=== PATIENT | female | born 1995 | race Caucasian/White ===

== ENCOUNTER → 2018-03-08 10:01 | Outpatient (CLI) | payer OTHER, MEDICAID, SELFPAY ==
[2018-03-08 11:00] LABS: Appearance Urine UA SL CLOUDY; Bilirubin Urine UA NEGATIVE (NEGATIVE); Color Urine UA YELLOW; Glucose Urine UA NEGATIVE (Normal); Ketones Urine UA NEGATIVE (NEGATIVE); Leukocyte Esterase Urine UA 1+ (NEGATIVE); Nitrite Urine UA Negative (Negative); Occult Blood Urine UA 1+ (Negative); Protein Urine UA NEGATIVE (Negative); Specific Gravity Urine UA 1.015 (1.000-1.035); Urobilinogen Urine UA 0.2 E.U./dL (0.2); pH Urine UA 6.5 (4.5-8.0)
[2018-03-08 11:15] LABS: Bacteria Urine Many (>30); Culture Indicated Urine Cult Not Indicated; RBC Urine 1-5/HPF (0-5/HPF); Squamous Epithelial Cell Urine 10-30 /HPF; WBC Urine 30-100/HPF (0-5/HPF)
[2018-03-08 12:28] LABS: Urine N gonorrhoeae NOT DETECTED
[2018-03-08 12:29] LABS: HCG Quantitative /Beta subunit < 2.39 mIU/mL
[2018-03-08 12:31] LABS: Urine Chlamydia NOT DETECTED
== END ==
PROVIDERS: PCP Internal Medicine; Visit Provider Internal Medicine
DX: N91.2 Amenorrhea, unspecified (principal); R30.0 Dysuria
CPT/HCPCS: 36415; 81003; 81015; 84702; 87077; 87086; 87491; 87591

== ENCOUNTER → 2018-07-27 14:55 | Outpatient (CLI) | payer OTHER, MEDICAID, SELFPAY ==
[2018-07-27 16:09] LABS: Add Manual Diff / Slide Review NO; Basophils Percent Auto 0.6 % (0-2); Hematocrit 36.9 % (36-46); Hemoglobin 12.6 g/dL (12.0-16.0); Lymphocytes Percent Auto 32.5 % (25-40); Mean Corpuscular HGB Conc 34.1 % (30-36); Mean Corpuscular Hemoglobin 29.2 PG (26-34); Mean Corpuscular Volume 85.7 fL (80-100); Monocytes Percent Auto 7.2 % (3-14); Neutrophils Absolute Auto 4800 /uL (3000-5900); Neutrophils Percent Auto 57.7 % (50-75); Platelet Count 233 X10^3/uL (150-400); Red Blood Cell Count 4.31 X10^6/uL (4.0-5.2); Red Cell Distribution Width 12.6 % (11.6-14.8); White Blood Cell Count 8.4 X10^3/uL (4.5-11.0)
[2018-07-27 16:11] LABS: Appearance Urine UA CLEAR; Bilirubin Urine UA NEGATIVE (NEGATIVE); Color Urine UA YELLOW; Glucose Urine UA NEGATIVE (Normal); Ketones Urine UA NEGATIVE (NEGATIVE); Leukocyte Esterase Urine UA NEGATIVE (NEGATIVE); Nitrite Urine UA NEGATIVE (Negative); Occult Blood Urine UA NEGATIVE (Negative); Protein Urine UA NEGATIVE (Negative); Specific Gravity Urine UA 1.025 (1.000-1.035); Urobilinogen Urine UA 0.2 E.U./dL (0.2)
[2018-07-27 18:37] LABS: HIV 1 and 2 Antibody NEGATIVE (NEGATIVE); Hep C Virus Ab w/Reflex Quant NEGATIVE s/c (NEGATIVE); Hepatitis B Surface Antigen NEGATIVE s/c (NEGATIVE); Rubella Antibody IgG 18.6 IU/mL (>15)
[2018-07-29 14:30] LABS: HSV 2 IGG AB < 0.90 index (< 0.90); HSV1IGG 9.03 index (< 0.90)
[2018-07-29 14:32] LABS: RPR Screen Nonreactive (Nonreactive)
== END ==
PROVIDERS: PCP Internal Medicine; Visit Provider Obstetrics & Gynecology
DX: Z34.91 Encounter for supervision of normal pregnancy, unspecified, first trimester (principal)
CPT/HCPCS: 36415; 80055; 81003; 86695; 86696; 86703; 86787; 86803; 86850; 86900; 86901; 87077; 87086

== ENCOUNTER → 2018-09-06 15:12 | Outpatient (CLI) | payer OTHER, MEDICAID, SELFPAY ==
[2018-09-06 15:28] LABS: RBC Urine None Seen (0-5/HPF)
[2018-09-06 15:46] LABS: Appearance Urine UA CLEAR; Bilirubin Urine UA NEGATIVE (NEGATIVE); Color Urine UA YELLOW; Glucose Urine UA NEGATIVE (Normal); Ketones Urine UA NEGATIVE (NEGATIVE); Leukocyte Esterase Urine UA NEGATIVE (NEGATIVE); Nitrite Urine UA NEGATIVE (Negative); Occult Blood Urine UA NEGATIVE (Negative); Protein Urine UA NEGATIVE (Negative)
[2018-09-06 16:32] LABS: Amorphous Sediment Urine 1+; Bacteria Urine Few (2-10); Culture Indicated Urine Cult Not Indicated; Mucus Urine 1+ (Negative); Renal Epithelial Cells Urine 0-1/HPF; Squamous Epithelial Cell Urine 5-10 /HPF; WBC Urine 1-5/HPF (0-5/HPF)
[2018-09-13 10:10] LABS: AFP, Serum 31.4 ng/mL; Calc Gestational Age 16.3; Cigarette Smoker NOT GIVEN; Donated Egg NOT GIVEN; Donor Egg Age NOT GIVEN; Inhibin A, Dimeric 262 pg/mL; Maternal Ethnicity CAUCASIAN; Maternal Weight 125 lbs; Number of Fetuses 1; Previous Pregnancy Down Syndro NOT GIVEN; hCG, MoM 1.57; hCG, Serum 57.2 IU/mL
== END ==
PROVIDERS: PCP Internal Medicine; Visit Provider Obstetrics & Gynecology
DX: Z34.82 Encounter for supervision of other normal pregnancy, second trimester (principal); Z3A.16 16 weeks gestation of pregnancy; Z87.440 Personal history of urinary (tract) infections
CPT/HCPCS: 36415; 81001; 82105; 82677; 84702; 86336

== ENCOUNTER → 2018-10-22 14:09 | Outpatient (CLI) | payer OTHER, MEDICAID, SELFPAY ==
--- NOTE | 2018-10-22 14:10 | DI.US.S_ITS ---
PROCEDURE: US OB >= 14 WEEKS FETUS INDICATIONS: anatomy survey OUTSIDE/PRIOR DATING DATA: Last menstrual period (LMP): 05/14/18. LMP-based estimated date of delivery (THALIA): 02/18/19. First dating scan (date and location): 07/27/18. Estimated date of delivery (THALIA) from first dating scan: 02/23/19. TECHNIQUE: Real-time scanning was performed of the fetus, with image documentation and biometric measurements. Endovaginal scanning: No COMPARISON: [facility], , OB >= 14 WEEKS FETUS, 09/06/2018, 15:08. FINDINGS: General: A single living intrauterine gestation is present. Presentation: Breech. Placenta: Placental position is posterior, without previa. Amniotic fluid index: 12.1 cm, normal range is 5-24 cm. heart rate: 153 beats per minute. Maternal cervical canal: 3.9 cm long. Normal lower limit is 2.5 cm. biometrics: Biparietal diameter: 22 weeks 1 day Head circumference: 22 weeks 0 days Abdominal circumference: 22 weeks 1 day Femur length: 21 weeks 4 days Estimated gestational age from initial scan: 22 weeks 2 days Composite gestational age from present scan: 22 weeks Estimated weight and percentile: 462 g; 27 percentile Measurement variability for biometric dating: +/- 7 days from 14 weeks to 15 weeks 6 days gestation, +/- 10 days from 16 weeks to 21 weeks 6 days gestation, +/- 2 weeks from 22 weeks to 27 weeks 6 days gestation, +/- 3 weeks for 28 weeks gestation or later. weight reference: 4500 g or EFW >90/95% is considered macrosomia or large for gestational age. EFW <10% is small for gestational age. EFW 5% or less is considered intra-uterine growth restriction. Anatomic survey: Neuro: Ventricles are non-dilated at less than 10 mm. Cisterna magna is normal at 3-11 mm. Cerebellum is normal in size and morphology. Nuchal skin fold: Normal at less than 6 mm between 14-21 weeks gestational age. Face: Nose and lips, facial profile are normal. Spine: No evidence for spina bifida. Heart: 4-chambered heart is present, with normal ventricular outflow tracts. Diaphragm: Diaphragm is intact. Stomach: Left-sided stomach is present. Kidneys: No hydronephrosis. Normal is less than 5 mm in 2nd trimester, less than 7 mm in 3rd trimester. Cord: 3-vessel cord has orthotopic insertion. Bladder: Normal in size. Extremities: All 4 extremities identified. IMPRESSION: 1. Single living IUP redemonstrated and interval growth is normal. 2. Normal anatomic survey. Dictated by: Nemesio FELICIANO Interpreted: Gerald Patel MD on 10/22/2018 at 16:29 Approved by: Gerald Patel M.D. on 10/22/2018 at 17:19
== END ==
PROVIDERS: PCP Internal Medicine; Visit Provider Obstetrics & Gynecology
DX: Z34.82 Encounter for supervision of other normal pregnancy, second trimester (principal)
CPT/HCPCS: 76811

== ENCOUNTER 2018-10-27 05:55 | Outpatient (CLI) | payer OTHER, MEDICAID, SELFPAY | END 2018-10-27 06:30 | disposition home or self-care (01) | LOC: LABOR 06:02 → OB 16:49 | PROVIDERS: PCP Internal Medicine; Visit Provider Family Medicine | DX: O46.92 Antepartum hemorrhage, unspecified, second trimester (principal); Z3A.23 23 weeks gestation of pregnancy | CPT/HCPCS: 59050; G0378; G0379 ==

== ENCOUNTER → 2018-11-08 15:19 | Outpatient (CLI) | payer OTHER, MEDICAID, SELFPAY ==
[2018-11-08 16:48] LABS: Hematocrit 35.7 % (36-46); Hemoglobin 12.3 g/dL (12.0-16.0)
[2018-11-08 17:00] LABS: GTT (PREG) 1 Hour PP 50gm Dose 87 mg/dL (76-139)
== END ==
PROVIDERS: PCP Internal Medicine; Visit Provider Obstetrics & Gynecology
DX: Z3A.25 25 weeks gestation of pregnancy (principal)
CPT/HCPCS: 36415; 82950; 85014; 85018

== ENCOUNTER 2018-11-17 10:12 | Observation (INO) | payer OTHER, MEDICAID, SELFPAY ==
[2018-11-17] MEDS: NIFEdipine 10 MG CAPSULE PO ×4 (11:29→12:43)
== END 2018-11-17 13:41 | disposition home or self-care (01) ==
PROVIDERS: Admitting Provider Obstetrics & Gynecology; PCP Internal Medicine; Visit Provider Obstetrics & Gynecology
DX: Z34.83 Encounter for supervision of other normal pregnancy, third trimester (principal); Z3A.26 26 weeks gestation of pregnancy
CPT/HCPCS: 59025; 59050; G0378; G0379

== ENCOUNTER 2018-12-23 17:47 | Outpatient (CLI) | payer OTHER, MEDICAID, SELFPAY | END 2018-12-23 19:03 | disposition home or self-care (01) | LOC: OB 12-24 11:42 | PROVIDERS: PCP Internal Medicine; Referring Provider Obstetrics & Gynecology | DX: O47.03 False labor before 37 completed weeks of gestation, third trimester (principal); Z3A.31 31 weeks gestation of pregnancy | CPT/HCPCS: 59025; G0378; G0379 ==

== ENCOUNTER → 2019-01-26 16:32 | Outpatient (CLI) | payer OTHER, MEDICAID, SELFPAY ==
[2019-01-27 12:29] LABS: Strep Grp B PCR NEG for Grp B Strep
== END ==
PROVIDERS: PCP Internal Medicine; Visit Provider Obstetrics & Gynecology
DX: Z34.83 Encounter for supervision of other normal pregnancy, third trimester (principal); Z3A.36 36 weeks gestation of pregnancy
CPT/HCPCS: 87653

== ENCOUNTER 2019-02-05 20:11 | Outpatient (CLI) | payer OTHER, MEDICAID, SELFPAY ==
--- NOTE | 2019-02-07 12:51 | PM.OBTRLD ---
Visit Information Visit Information Date of evaluation: 02/05/19 Primary OB Provider: Teresita Mcclendon On-call OB Provider: Yris Baumann Reason for Evaluation: Yes other Comments/Additional reasons for admission: Rule out preeclampsia Vital Signs Vital Signs: Blood pressure 128/79, pulse 75, temperature 36.4? [facility] Medical History (Updated 02/07/19 @ 12:55 by Yris Baumann MD) History of chlamydia (Chronic) History of depression (Chronic) History of self mutilation (Chronic) Social History Smoking Status: Current every day smoker Social History Smoking Status: Current every day smoker Review of Systems Review of Systems Patient complaining of headache, swelling, abdominal pain. Good movement. No rupture membranes. No fevers. Patient has been taking stool softeners for constipation. Exam Vital Signs (past 8 hours): Blood pressure 128/79, pulse 75, temperature 36.4? Evaluation Evaluation Baseline heart rate: 125 Variability: Moderate (11-25) monitor accelerations: Present monitor decelerations: Absent Category of Tracing: I Diagnosis, Plan/Disposition Final Diagnosis (1) Headache: Current Visit: No Status: Acute (2) 38 weeks gestation of : Current Visit: No Status: Acute Plan/Disposition Plan: The patient with no evidence of preeclampsia. Reassured keep her routine OB appointment OB Disposition: home
--- NOTE | 2019-02-07 12:56 | P.TNLD_ITS ---
Visit Information Visit Information Date of evaluation: 02/05/19 Primary OB Provider: Teresita Mcclendon On-call OB Provider: Yris Baumann Reason for Evaluation: Yes other Comments/Additional reasons for admission: Rule out preeclampsia Vital Signs Vital Signs: Blood pressure 128/79, pulse 75, temperature 36.4? [facility] Medical History (Updated 02/07/19 @ 12:55 by Yris Baumann MD) History of chlamydia (Chronic) History of depression (Chronic) History of self mutilation (Chronic) Social History Smoking Status: Current every day smoker Social History Smoking Status: Current every day smoker Review of Systems Review of Systems Patient complaining of headache, swelling, abdominal pain. Good movement. No rupture membranes. No fevers. Patient has been taking stool softeners for constipation. Exam Vital Signs (past 8 hours): Blood pressure 128/79, pulse 75, temperature 36.4? Evaluation Evaluation Baseline heart rate: 125 Variability: Moderate (11-25) monitor accelerations: Present monitor decelerations: Absent Category of Tracing: I Diagnosis, Plan/Disposition Final Diagnosis (1) Headache: Current Visit: No Status: Acute (2) 38 weeks gestation of : Current Visit: No Status: Acute Plan/Disposition Plan: The patient with no evidence of preeclampsia. Reassured keep her routine OB appointment OB Disposition: home
== END 2019-02-05 21:05 | disposition home or self-care (01) ==
LOC: OB 02-09 13:59
PROVIDERS: Visit Provider Specialist
DX: O26.893 Other specified pregnancy related conditions, third trimester (principal); R51 Headache; Z3A.38 38 weeks gestation of pregnancy
CPT/HCPCS: 59025; G0378; G0379

== ENCOUNTER 2019-02-09 20:01 | Inpatient (IN) | payer OTHER, MEDICAID, SELFPAY ==
[2019-02-09] MEDS: miSOPROStol 25 MCG TABLET VAG (22:12)
[2019-02-09 22:50] LABS: Add Manual Diff / Slide Review NO; Basophils Absolute Auto 0 /uL (0-100); Basophils Percent Auto 0.4 % (0-2); Eosinophils Absolute Auto 100 /uL (0-450); Eosinophils Percent Auto 1.1 % (2-4); Hematocrit 37.7 % (36-46); Hemoglobin 13.3 g/dL (12.0-16.0); Lymphocytes Absolute Auto 2500 /uL (1100-4500); Lymphocytes Percent Auto 29.5 % (25-40); Mean Corpuscular HGB Conc 35.2 % (30-36); Mean Corpuscular Hemoglobin 30.7 PG (26-34); Mean Corpuscular Volume 87.3 fL (80-100); Monocytes Absolute Auto 700 /uL (0-900); Monocytes Percent Auto 8.5 % (3-14); Neutrophils Absolute Auto 5100 /uL (1500-7000); Neutrophils Percent Auto 60.5 % (50-75); Platelet Count 186 X10^3/uL (150-400); Red Blood Cell Count 4.32 X10^6/uL (4.0-5.2); Red Cell Distribution Width 12.5 % (11.6-14.8); White Blood Cell Count 8.5 X10^3/uL (4.5-11.0)
[2019-02-10] MEDS: LACTATED RINGERS 1,000 ML 100 ML IV ×4 (06:06→21:38)
[2019-02-10] MEDS: OXYTOCIN PREMIX 30 UNIT/500 ML PLAST..BAG IV (06:07)
[2019-02-10] MEDS: CEFAZOLIN 2 GM/100 ML FROZ.PIGGY IV (11:47)
--- NOTE | 2019-02-10 12:14 | SUR.OPER ---
Viable male born at 12:14. Two tubes cord blood and placenta sent with L&D RN.
[2019-02-10 12:52] VITALS: BP 107/64; PULSE 56; RESP 12; TEMP 35.6; O2SAT 100
[2019-02-10 12:57] VITALS: BP 115/68; PULSE 54; RESP 8; O2SAT 100
[2019-02-10 13:02] VITALS: BP 112/73; PULSE 56; RESP 12; O2SAT 98
[2019-02-10 13:06] VITALS: BP 108/73; PULSE 57; RESP 10; O2SAT 100
[2019-02-10 13:17] VITALS: BP 113/66; PULSE 53; RESP 15; O2SAT 100
--- NOTE | 2019-02-10 13:43 | SUR.PHASEI ---
Pt transferred to LD via LD nurses. Report given and pt in stable condition upon transfer
[2019-02-10] MEDS: OXYCODONE/ACETAMINOPHEN 5/325 TABLET 2 TAB PO ×2 (15:25→21:39)
[2019-02-10] MEDS: ONDANSETRON 4 MG/2 ML INJ IV (17:31)
[2019-02-10] MEDS: KETOROLAC 30 MG/ML VIAL IV (21:39)
[2019-02-11 05:07] VITALS: BP 118/78
[2019-02-11] MEDS: OXYCODONE/ACETAMINOPHEN 5/325 TABLET 2 TAB PO ×4 (06:54→20:10)
[2019-02-11] MEDS: KETOROLAC 30 MG/ML VIAL IV (06:55)
[2019-02-11 07:05] LABS: Hematocrit 34.3 % (36-46); Hemoglobin 12.1 g/dL (12.0-16.0)
[2019-02-11] MEDS: DOCUSATE 250 MG CAPSULE PO (09:35)
[2019-02-11] MEDS: PRENATAL VIT,CALC/IRON/FOLIC 1 TABLET 1 TAB PO (09:35)
[2019-02-11] MEDS: IBUPROFEN 600 MG TABLET PO ×2 (16:07→22:18)
[2019-02-12] MEDS: OXYCODONE/ACETAMINOPHEN 5/325 TABLET 2 TAB PO ×3 (01:29→10:39)
[2019-02-12] MEDS: IBUPROFEN 600 MG TABLET PO ×2 (04:20→10:39)
[2019-02-12] MEDS: LANOLIN OINT 7 GM 1 APPLIC TOP (05:02)
[2019-02-12] MEDS: DOCUSATE 250 MG CAPSULE PO (09:23)
[2019-02-12] MEDS: PRENATAL VIT,CALC/IRON/FOLIC 1 TABLET 1 TAB PO (09:23)
[2019-02-12 11:34] VITALS: BP 124/88; PULSE 69; RESP 16; TEMP 36.1
[2019-02-12 12:13] VITALS: BP 124/88; PULSE 69; RESP 16; TEMP 36.1
--- NOTE | 2019-02-25 06:27 | PM.GYNOP.1 ---
Operative Date/Time/Diagnoses Date of procedure: 02/16/19 Time of procedure: 12:30 Pre-op diagnosis: Breech presentation Thirty-nine weeks gestation Post-op diagnosis: same Procedure: Procedures Operation Date: 02/10/19 11:30 Actual Procedures Side Surgeon p Section Teresita Mcclendon MD Indications: Breech presentation in active labor Surgeon: Teresita Mcclendon Classroom Monitor: Yris Baumann Anesthesia Type: Spinal Operative Notes Findings: Live male in the complete breech presentation Closure Type: primary Specimen(s): other (Cord bloods, placenta) Applied: catheter Estimated blood loss (mL): 500 Blood products transfused: none Procedure in detail: The patient was taken to the operating room where she was placed in the seated position. Spinal anesthesia was administered. She was then placed in the dorsal supine position with a leftward tilt. She was prepped and draped in the usual sterile fashion. A timeout was performed. After spinal analgesia was found to be adequate, a Pfannenstiel skin incision was made 2 fingerbreadths above the pubic symphysis and carried through to the underlying layer fascia. The fascia was nicked in the midline, and the incision extended bilaterally with the Damian scissors. The superior aspect of the fascial incision was grasped with a Porterfield clamps, elevated, and the underlying rectus muscles dissected off sharply and bluntly. Attention was then turned to the inferior aspect of this incision which in a similar fashion was grasped with a Porterfield clamps, elevated, and the underlying rectus muscles dissected off sharply and bluntly. The rectus muscles were in the midline. The peritoneum was identified, grasped between 2 hemostats, and entered sharply with the Metzenbaum scissors. This incision was extended superiorly and inferiorly with good visualization of the bladder. The bladder blade was inserted. The vesicouterine peritoneum was identified, grasped with the pickup, and entered sharply with the Metzenbaum scissors. This incision was extended bilaterally, and the bladder flap was created digitally. The bladder blade was reinserted. The lower uterine segment was incised in a transverse fashion with the scalpel. Upon entering the amniotic sac there was a small amount of clear amniotic fluid. The infant was delivered by total breech extraction. The nose and mouth were suctioned with bulb suction. The cord was double clamped and cut. The was handed off to waiting RN and RT. The placenta was delivered manually. The uterus was cleared of all clots and debris. The uterine incision was repaired with #1 chromic in a running interlocking fashion, and a second layer the same suture was used for an imbricating layer. The stasis was achieved. The tubes and ovaries were examined and were found to be normal. The gutters were cleared of all clots and debris. The bladder flap was reapproximated using 2-0 Vicryl in a running fashion. The parietal peritoneum was closed using 2-0 Vicryl in a running fashion. The fascia was reapproximated using 0 Vicryl in a running fashion. Subcutaneous layer was copiously irrigated with warm normal saline. 3 simple interrupted sutures of 3-0 Vicryl were placed to reapproximate the subcutaneous layer. The skin was closed with 4-0 undyed Vicryl in a subcuticular fashion. Steri-Strips were placed. An Aquacel dressing was placed. The uterus was expressed of a small amount of old blood. Sponge, lap, and instrument counts were correct x-2. The patient tolerated the procedure well, and was taken to PACU in stable condition. Complications: none Post-operative Condition: stable Disposition: PACU Plan for aftercare: To Center after recovery
--- NOTE | 2019-02-25 06:35 | P.DS_ITS ---
History of Present Illness Date Patient Seen: 02/11/19 Time Patient Seen: 13:30 Chief complaint: labor & delivery Narrative: Patient is a 24-year-old 2 para 2 who presented on 02/09/2019 for a scheduled induction of labor. She was found to be 6 cm dilated in the late morning but the baby was in the breech presentation. She underwent an emergent primary section without complication. Her postoperative course was unremarkable and she was discharged home on postop day # 2. Discharge Providers Date of admission: 02/09/19 20:01 Discharge Date: 02/11/19 Consults: 02/10/19 15:06 Consult to Patient Registration Representative Routine Comment: Discharge provider: Teresita Mcclendon MD Summary Discharge Diagnosis: Thirty-nine weeks gestation Complete breech presentation Primary section Hospital Course: Patient was admitted for induction of labor. She was started on Pitocin on the morning of 02/09/2018. By late morning she was found to be 6 cm dilated but the baby was in the breech presentation. She underwent a primary section. Her postoperative course was unremarkable. Status at Discharge Cognitive/behavioral status at discharge: oriented Functional status at discharge: independent ambulation Overall status at discharge: patient is progressing back to baseline Time Spent with Patient Less than 30 minutes Exam Vital Signs (past 8 hours): Oxygen Delivery Method Room Air Narrative Exam Narrative: Generally: Patient is sitting up in bed, holding , no acute distress Fundus: Firm at U -2 Incision: Clean dry and intact with Aquacel dressing Extremities: Negative Homans, no edema Objective Labs Result Diagrams: 02/11/19 06:30 Discharge Plan Discharge Plan Patient Disposition: Home Discharge comment: Call with fever, chills, redness or drainage around the incision or bleeding vaginally more than a pad in an hour Ibuprofen 600mg every 6 hours Discharge Med Rec/Prescriptions Prescriptions: New oxycodone-acetaminophen [Percocet] 5-325 mg tablet 1 tab PO Q4-6H PRN (Reason: pain) Qty: 30 RF: 0 Discontinued sumatriptan [Imitrex] 20 mg/actuation spray,non-aerosol 20 mg NASAL ONCE PRN (Reason: At 1st onset of migraine) RF: 0 Follow up/Referrals: Teresita Mcclendon MD [Physician] - 02/16/19 (Appointment with on Wed at 2:30pm and on at 2:30pm) Provider Discharge Instructions Diet: Regular Activity: No heavy lifting, pushing or pulling Skin/Wound/Dressing Care Report to your healthcare provider any signs of infection, such as:: chills, fever, increased pain, unusual drainage and unusual redness Dressing: Leave Aquacel dressing in place Visit Report/Discharge Packet Instructions: DI for Discharge Data Attending Provider: Teresita Mcclendon Admit Date/Time: 02/09/19 20:01 Discharges patient from system. Discharge Date/Time: 02/12/19 12:54
== END 2019-02-12 12:54 | disposition home or self-care (01) | DRG 540 ==
PROVIDERS: Admitting Provider Obstetrics & Gynecology; Visit Provider Obstetrics & Gynecology
PROC: (CPT 59514; principal; 2019-02-10 11:30)
DX: O32.1XX0 Maternal care for breech presentation, not applicable or unspecified (principal); Z37.0 Single live birth; Z3A.39 39 weeks gestation of pregnancy
CPT/HCPCS: 36415; 59050; 59514; 76815; 85014; 85018; 85025; 86850; 86900; 86901; G0379; J0690; J1885; J2274; J2405; J2590; J3010

== ENCOUNTER 2019-08-16 16:17 | Emergency (ER) | payer OTHER, SELFPAY ==
[2019-08-16 16:29] VITALS: BP 107/67; PULSE 84; RESP 16; TEMP 36.1; O2SAT 98; BMI 24.7
--- NOTE | 2019-08-16 17:01 | ED_ITS ---
HPI - Headache <BAILEY Bernal - Last Filed: 08/16/19 21:08> General Chief Complaint: Headache Stated Complaint: MIGRAINE Time Seen by Provider: 08/16/19 16:39 Mode of arrival: Ambulatory History of Present Illness HPI Narrative: 24-year-old female with history of migraines presents emergency department today complaining of a 8/10 aching migraine for the past week. She states it initially started with her normal or aura with spots in her eyes and then progressed to headache. She has been taking Tylenol and ibuprofen which has helped but the headache continues to come back. She reports associated nausea, photophobia and phonophobia, today she had 1 episode of vomiting. She denies any fevers, chills, vision loss, double vision, neck pain, abdominal pain, diarrhea, dysuria, or other concerns. Related Data Home Medications Medication Instructions Recorded Confirmed prenat.vits,mary,faw-xhjf-xgphd 1 tab PO QPM 05/25/19 08/16/19 norethindrone (contraceptive) 0.35 mg PO QPM 08/16/19 08/16/19 [Ortho Micronor] Previous Rx's Medication Instructions Recorded breast pump #1 each 05/25/19 metoclopramide HCl [Reglan] 5 mg PO QAC #14 tab 08/16/19 Allergies Allergy/AdvReac Type Severity Reaction Status Date / Time No Known Drug Allergies Allergy Verified 08/16/19 16:32 Review of Systems <BAILEY Bernal - Last Filed: 08/16/19 21:08> Review of Systems Narrative: REVIEW OF SYSTEMS: GENERAL: Denies fever or chills. HENT: No head trauma,. Reports headache, see HPI. EYES: No loss of vision, double vision, eye pain, or irritation. CARDIOVASCULAR: No chest pain or syncope. RESPIRATORY: No shortness of breath or cough. GASTROINTESTINAL: Reports nausea, see HPI. No diarrhea, or constipation. GENITOURINARY: No flank pain or dysuria. MUSCULOSKELETAL: No pain, weakness, or deformities. INTEGUMENTARY: No rash, lesions, or pruritus. NEURO: No numbness, tingling, memory loss, or confusion. PSYCH: No behavior or mood changes. Patient History <BAILEY Bernal - Last Filed: 08/16/19 21:08> Medical History History of chlamydia (Chronic) History of depression (Chronic) History of self mutilation (Chronic) Surgical History History of section, low transverse (Acute) Social History Smoking Status: Former smoker Substance Use Type: marijuana Exam <BAILEY Bernal - Last Filed: 08/16/19 21:08> Initial Vital Signs Initial Vital Signs: Vital Signs Temperature 97.0 F L 08/16/19 16:29 Pulse Rate 84 08/16/19 16:29 Respiratory Rate 16 08/16/19 16:29 Blood Pressure 107/67 08/16/19 16:29 Pulse Oximetry 98 08/16/19 16:29 PHYSICAL EXAMINATION: GENERAL: Well groomed, alert, and cooperative. Answers questions promptly and appropriately. Vital signs noted. HENT: Normocephalic, atraumatic. Ear canals patent. Oral mucosa is pink and moist. EYES: PERRLA, EOMIs, conjunctiva pink, sclera white, no periorbital swelling. CHEST: Normal to inspection and without deformities. CARDIOVASCULAR: S1 and S2 sounds normal. Regular rate and rhythm, no murmurs, clicks, or bruits. No pedal edema. RESPIRATORY: Normal respiratory rate, trachea midline, airway patent. No stridor, nasal flaring or accessory muscle use. Lungs are clear in all rodrigues without wheeze, rhonchi, or crackles. GASTROINTESTINAL: Bowel sounds normoactive. Abdomen is soft and non-tender. No organomegaly. MUSCULOSKELETAL: Normal gait and coordination. Equal tone and mass bilaterally. EXTREMITIES: CMS intact. Moves all extremities. SKIN: Warm, dry, soft, appropriate color for ethnicity. No lesions, rashes, or wounds. NEURO: Alert and Oriented X 3. CN III-XIII intact. Good coordination. No ataxia, or sensory deficits, or cognitive issues. PSYCH: Appropriate affect and mood. <Wanda Lan DO - Last Filed: 08/18/19 07:41> Initial Vital Signs Initial Vital Signs: Vital Signs Temperature 97.0 F L 08/16/19 16:29 Pulse Rate 84 08/16/19 16:29 Respiratory Rate 16 08/16/19 16:29 Blood Pressure 107/67 08/16/19 16:29 Pulse Oximetry 98 08/16/19 16:29 Course <BAILEY Bernal - Last Filed: 08/16/19 21:08> Course Course Narrative: Patient was given Tylenol, Benadryl, fluids, Toradol, and Reglan in the emergency department. She reports near complete relief of migraine. She is requesting to go home after completion of fluids. Orders Ordered: Discontinued Medications Acetaminophen (Tylenol) 975 mg PO NOW ONE Stop: 08/16/19 17:00 Last Admin: 08/16/19 17:23 Dose: 975 mg Documented by: YOHANA Diphenhydramine HCl (Benadryl) 25 mg IV NOW ONE Stop: 08/16/19 17:00 Last Admin: 08/16/19 17:23 Dose: 25 mg Documented by: YOHANA Sodium Chloride (Normal Saline 0.9%) 1,000 mls @ 1,000 mls/hr IV BOLUS ONE Stop: 08/16/19 17:58 Last Infusion: 08/16/19 18:33 Dose: 0 mls/hr Documented by: Admin: 08/16/19 17:22 Dose: 1,000 mls/hr Documented by: YOHANA Ketorolac Tromethamine (Toradol) 30 mg IV NOW ONE Stop: 08/16/19 17:00 Last Admin: 08/16/19 17:22 Dose: 30 mg Documented by: YOHANA Metoclopramide HCl (Reglan) 10 mg IV NOW ONE Stop: 08/16/19 17:00 Last Admin: 08/16/19 17:23 Dose: 10 mg Documented by: YOHANA Consultations Consultation #1: Patient staffed with Dr. Lan. Vital Signs Vital signs: Vital Signs - 8 hr 08/16/19 16:29 08/16/19 18:51 Temperature 97.0 F L Pulse Rate 84 80 Respiratory Rate 16 15 Blood Pressure 107/67 100/61 Pulse Oximetry 98 100 <Wanda Lan DO - Last Filed: 08/18/19 07:41> Orders Ordered: Discontinued Medications Acetaminophen (Tylenol) 975 mg PO NOW ONE Stop: 08/16/19 17:00 Last Admin: 08/16/19 17:23 Dose: 975 mg Documented by: YOHANA Diphenhydramine HCl (Benadryl) 25 mg IV NOW ONE Stop: 08/16/19 17:00 Last Admin: 08/16/19 17:23 Dose: 25 mg Documented by: YOHANA Sodium Chloride (Normal Saline 0.9%) 1,000 mls @ 1,000 mls/hr IV BOLUS ONE Stop: 08/16/19 17:58 Last Infusion: 08/16/19 18:33 Dose: 0 mls/hr Documented by: Admin: 08/16/19 17:22 Dose: 1,000 mls/hr Documented by: YOHANA Ketorolac Tromethamine (Toradol) 30 mg IV NOW ONE Stop: 08/16/19 17:00 Last Admin: 08/16/19 17:22 Dose: 30 mg Documented by: YOHANA Metoclopramide HCl (Reglan) 10 mg IV NOW ONE Stop: 08/16/19 17:00 Last Admin: 08/16/19 17:23 Dose: 10 mg Documented by: YOHANA Vital Signs Vital signs: Vital Signs - 8 hr 08/16/19 16:29 08/16/19 18:51 Temperature 97.0 F L Pulse Rate 84 80 Respiratory Rate 16 15 Blood Pressure 107/67 100/61 Pulse Oximetry 98 100 [facility] - Headache <Radha McintyreBAILEY - Last Filed: 08/16/19 21:08> Medical Records Attestation: I reviewed the patient's medical records. Lab Data Attestation: I reviewed the patient's lab results. [facility] Narrative Medical decision making narrative: This is a 24-year-old female with a history of migraines who presents emergency department for an ongoing migraine. Her pain was significantly relieved after administration of medications. Her neuro exam was intact and she remained hemodynamically stable throughout her stay. Kenney dean's pain was most likely caused by typical migraine, less likely acute cranial etiology such as cranial bleed (normal neuro examination, resolution of symptoms with medication, reports of consistent migraine auras and characteristics). Less likely infectious etiologies such as meningitis due to lack of systemic symptoms such as fever and tachycardia and lack of neck pain. She was given a prescription for Reglan encouraged to take Tylenol and ibuprofen if migraine continues. Patient was encouraged to follow up with her primary care provider in the next few days/weeks if her symptoms continue for further discussion of testing and/or maintenance medications if needed. Return precautions given for new or worsening symptoms. Discharge Plan Departure Patient Disposition: Home Clinical Impression: Migraine Qualifiers: Migraine type: with aura Status migrainosus presence: without status migrainosus Intractability: not intractable Qualified Code(s): G43.109 - Migraine with aura, not intractable, without status migrainosus Discharge Date/Time: 08/16/19 18:51 Instructions: DI for Migraine Activity Restrictions/Additional Instructions: Thank you for entrusting me with your care today. As discussed, I have prescribed you a medication for nausea, this will also help decrease your migraine if it returns. I recommend taking Tylenol 1000mg, ibuprofen 600mg, Reglan/metoclopramide 5-10mg, and Benadryl 25mg in another 6 hours if your headache returns. Please follow up with your primary care provider in the next few weeks if her headaches continue to discuss further management and prevention of migraines. Return emergency department if you develop new or worsening symptoms such as double vision, vision loss, uncontrollable vomiting, high fevers, chest pain, or shortness of breath. Prescriptions: New metoclopramide HCl [Reglan] 5 mg tablet 5 mg PO QAC Qty: 14 RF: 0 No Action prenat.vits,mary,lyc-stuy-[id number] tablet 1 tab PO QPM RF: 0 (DME) breast pump device See Rx Instructions .ROUTE .MEDSUPPLY Qty: 1 RF: 0 norethindrone (contraceptive) [Ortho Micronor] 0.35 mg tablet 0.35 mg PO QPM RF: 0
[2019-08-16] MEDS: SODIUM CHLORIDE 0.9% 1,000 ML 1000 ML IV (17:22)
[2019-08-16] MEDS: KETOROLAC 60 MG/2 ML VIAL 30 MG IV (17:22)
[2019-08-16] MEDS: ACETAMINOPHEN 325 MG TABLET 975 MG PO (17:23)
[2019-08-16] MEDS: diphenhydrAMINE 50 MG/ML VIAL 25 MG IV (17:23)
[2019-08-16] MEDS: METOCLOPRAMIDE 10 MG/2 ML INJ IV (17:23)
[2019-08-16 18:51] VITALS: BP 100/61; PULSE 80; RESP 15; O2SAT 100
== END 2019-08-16 18:51 | disposition home or self-care (01) ==
PROVIDERS: Emergency Provider Nurse Practitioner
DX: G43.109 Migraine with aura, not intractable, without status migrainosus (principal)
CPT/HCPCS: 36415; 96361; 96374; 96375; 99283; 99284; J1200; J1885; J2765

== ENCOUNTER → 2020-06-01 11:06 | Outpatient (CLI) | payer OTHER, SELFPAY | PROVIDERS: PCP Nurse Practitioner Family; Visit Provider Nurse Practitioner Family | DX: N39.0 Urinary tract infection, site not specified (principal) | CPT/HCPCS: 87086 ==

== ENCOUNTER 2020-06-29 19:37 | Emergency (ER) | payer OTHER, MEDICAID, SELFPAY ==
[2020-06-29 19:42] VITALS: BP 119/87; PULSE 69; RESP 16; TEMP 36.1; O2SAT 100; BMI 20.2
[2020-06-29 20:26] LABS: Add Manual Diff / Slide Review NO; Basophils Absolute Auto 100 /uL (0-100); Basophils Percent Auto 0.6 % (0-2); Eosinophils Absolute Auto 200 /uL (0-450); Eosinophils Percent Auto 2.2 % (2-4); Hematocrit 37.9 % (36-46); Lymphocytes Absolute Auto 3300 /uL (1100-4500); Lymphocytes Percent Auto 33.7 % (25-40); Mean Corpuscular HGB Conc 34.3 % (30-36); Mean Corpuscular Hemoglobin 29.1 PG (26-34); Mean Corpuscular Volume 84.7 fL (80-100); Monocytes Absolute Auto 700 /uL (0-900); Monocytes Percent Auto 6.9 % (3-14); Neutrophils Absolute Auto 5600 /uL (1500-7000); Neutrophils Percent Auto 56.6 % (50-75); Platelet Count 222 X10^3/uL (150-400); Red Blood Cell Count 4.47 X10^6/uL (4.0-5.2); Red Cell Distribution Width 13.1 % (11.6-14.8); White Blood Cell Count 9.9 X10^3/uL (4.5-11.0)
[2020-06-29 20:35] LABS: Alanine Aminotransferase 16 IU/L (<35); Albumin 4.4 g/dL (3.5-5.0); Albumin Globulin Ratio 1.6 (1.0-2.8); Alkaline Phosphatase 58 U/L (38-126); Aspartate Aminotransferase 22 IU/L (14-36); Bilirubin Total 0.5 mg/dL (0.2-1.3); Blood Urea Nitrogen 9 mg/dL (7-17); Calcium 9.3 mg/dL (8.4-10.2); Carbon Dioxide 25 mmol/L (22-32); Chloride 104 mmol/L (98-107); Estimated Glomerular Filt Rate > 60.0 mL/min (>60); Globulin 2.8 g/dL (1.7-4.1); Glucose 77 mg/dL (70-100); HEMOLYSIS < 15 (0-50); Potassium 3.2 mmol/L (3.4-5.1); Sodium 137 mmol/L (137-145); Total Protein 7.2 g/dL (6.3-8.2)
[2020-06-29 20:37] VITALS: BP 118/81; PULSE 60; RESP 14; O2SAT 100
[2020-06-29 20:52] LABS: Bacteria Urine None Seen; WBC Urine None Seen (0-5/HPF)
[2020-06-29 20:57] LABS: Culture Indicated Urine Cult Not Indicated; RBC Urine 5-10/HPF (0-5/HPF)
[2020-06-29 21:00] VITALS: BP 126/75; PULSE 60; RESP 16; O2SAT 100
--- NOTE | 2020-06-29 21:03 | DI.US.S_ITS ---
PROCEDURE: US OB <= 14 WEEKS FETUS INDICATIONS: at 9 weeks, pain, bleeding OUTSIDE/PRIOR DATING DATA: Last menstrual period (LMP): 04/21/2020. LMP-based estimated date of delivery (THALIA): 01/26/2021. First dating scan (date and location): 06/20/2020. Estimated date of delivery (THALIA) from first dating scan: 01/26/2021 . TECHNIQUE: Real-time scanning was performed of the fetus and maternal pelvic organs, with image documentation. Endovaginal scanning was also performed to better visualize the fetus and maternal ovaries. COMPARISON: [facility], , OB <= 14 WEEKS FETUS, 06/20/2020, 8:43. [facility], , OB <= 14 WEEKS FETUS, 06/20/2020, 17:07. FINDINGS: Embryo: Intrauterine gestational with presence of a pole. The crown-rump length measures approximately 3.72 cm corresponding with an estimated gestational age currently of 10 weeks 4 days. heart tones are present with heart rate between 157 in 160 beats per minute. The placenta is centered posteriorly and towards the right. No evidence of placenta previa. No evidence of the perigestational hemorrhage. Measurement variability in dating: +/- 4 weeks by LMP, +/- 7 days by mean sac diameter (use before 6 weeks gestation if crown-rump length not able to be measured), +/- 5 days by crown-rump length (up to 8 weeks 6 days gestation), +/- 7 days by crown-rump length (up to 13 weeks 6 days gestation). Maternal organs: Ovaries not visualized. Limited images through the kidneys demonstrate no hydronephrosis. IMPRESSION: 1. No evidence of placenta previa or perigestational hemorrhage. 2. crown-rump length of 3.72 cm corresponding to estimated gestational age of 10 weeks 4 days. No significant discrepancy between the preliminary and final report. Dictated by: Misael Berumen M.D. on 06/30/2020 at 8:14 Approved by: Misael Berumen M.D. on 06/30/2020 at 8:21
--- NOTE | 2020-06-29 21:03 | ED_ITS ---
HPI - General Chief complaint: Vaginal Bleeding Stated complaint: 9 WKS BLEEDING SMALL CLOTS TO Time Seen by Provider: 06/29/20 20:00 Source: patient Mode of arrival: Ambulatory Limitations: no limitations History of Present Illness HPI Narrative: 25-year-old female former smoker is a at approximately 9 weeks presents with her mother and a chief complaint of occasional pelvic cramping and vaginal bleeding over the past day or 2. She at times she has had clots as large as half dollar but only sparingly. She is not bled through more than 3 pads this afternoon. She is not dizzy nor weak or lightheaded. She denies any fever or chills. Her assault amphibious vehicle officer is Dr. Mcclendon and she was seen by her a few weeks ago and had IUP confirmed on bedside US. Her blood type is B+ Complaint: vaginal bleeding Onset (ago): day(s) Pain Consistency: intermittent Location: pelvis Severity: mild Quality: Cramping Relieving factors: none Exacerbating factors: none Associated symptoms: vaginal bleeding Vaginal bleeding: light and clots Patient : Yes OB History - Current : no complications OB History - Previous Pregnancies: no complications care: followed by OB Related Data : 3 Para: 2 Home Medications Medication Instructions Recorded Confirmed docusate sodium 100 mg capsule 100 mg PO DAILY 06/14/20 06/20/20 prenat.vits,mary,[id number] 1 tab PO DAILY 06/14/20 06/20/20 Previous Rx's Medication Instructions Recorded potassium chloride 20 meq PO DAILY #7 tab 06/29/20 Allergies Allergy/AdvReac Type Severity Reaction Status Date / Time No Known Drug Allergies Allergy Verified 06/29/20 19:46 Review of Systems Constitutional Constitutional: Denies chills, Denies fatigue, Denies fever(s), Denies frequent falls, Denies lethargy and Denies weakness Eyes Eyes: Denies change in vision, Denies eye discharge, Denies irritation and Denies loss of vision ENT Ears, Nose, Mouth, and Throat: Denies change in voice, Denies dizziness, Denies neck pain, Denies sore throat and Denies throat swelling Cardiovascular Cardiovascular: Denies chest pain, Denies irregular heart rhythm, Denies lightheadedness, Denies palpitations, Denies dyspnea, Denies dyspnea on exertion and Denies orthopnea Respiratory Respiratory: Denies cough, Denies dyspnea, Denies dyspnea on exertion and Denies wheezing Gastrointestinal Gastrointestinal: Denies abdominal pain, Denies change in bowel habits, Denies diarrhea, Denies nausea and Denies vomiting Genitourinary Genitourinary: Reports abnormal vaginal bleeding Musculoskeletal Musculoskeletal: Denies neck pain and Denies numbness Integumentary/Breasts Skin/Breast: Denies pruritus, Denies erythema, Denies rash and Denies wounds Neurologic Neurologic: Denies behavioral changes, Denies confusion, Denies dizziness, Denies frequent falls, Denies loss of vision, Denies numbness and Denies weakness Psychiatric Psychiatric: Denies anxiety, Denies behavioral changes, Denies confusion, Denies depression, Denies homicidal ideation and Denies suicidal ideation Endocrine Endocrine: Denies fatigue, Denies flushing and Denies palpitations Hematologic/Lymphatic Hematologic/Lymphatic: Denies easy bruising Allergic/Immunologic Allergic/Immunologic: Denies urticaria, Denies throat swelling and Denies w heezing PMFSH - Past Medical History Patient : Yes Exam Narrative Exam Narrative: GENERAL: [25] year old patient appears stated age. Well- nourished, well-developed patient, in mild distress. HEAD: Atraumatic. Normocephalic. EYES: Pupils equal round and reactive. Extraocular motions intact. No scleral icterus. No injection or drainage. ENT: Nose without bleeding, purulent drainage. Throat without erythema, tonsillar hypertrophy or exudate. Airway patent. NECK: Trachea midline. Non tender CARDIOVASCULAR: Regular rate and rhythm without murmurs, gallops, or rubs. RESPIRATORY: Clear to auscultation. Breath sounds equal bilaterally. No wheezes, rales, or rhonchi. GASTROINTESTINAL: Abdomen soft, non-tender, nondistended. EXTREMITIES: No edema or joint tenderness. BACK: Nontender without deformity or crepitance. No flank tenderness. NEURO: AOx3. SKIN: No rash or erythema of visible areas Initial Vital Signs Initial Vital Signs: Vital Signs Temperature 97.0 F L 06/29/20 19:42 Pulse Rate 69 06/29/20 19:42 Respiratory Rate 16 06/29/20 19:42 Blood Pressure 119/87 06/29/20 19:42 Pulse Oximetry 100 06/29/20 19:42 Course Orders Ordered: ED Orders 06/29/20 20:17 ABO RH Type Stat Complete Blood Count AUTO DIFF Stat Comprehensive Metabolic Panel Stat HCG Quantitative /Beta subunit Stat 06/29/20 20:35 Urine Microscopic Stat 06/29/20 21:03 US OB <= 14 weeks fetus Stat Vital Signs Vital signs: Vital Signs - 8 hr 06/29/20 19:42 06/29/20 20:37 06/29/20 21:00 Temperature 97.0 F L Pulse Rate 69 60 60 Respiratory Rate 16 14 16 Blood Pressure 119/87 118/81 126/75 Pulse Oximetry 100 100 100 06/29/20 22:00 06/29/20 22:30 06/29/20 23:04 Temperature 98.1 F Pulse Rate 65 60 Respiratory Rate 14 12 Blood Pressure 109/65 101/58 L Pulse Oximetry 99 100 MDM - OB/Uterine Contractions Lab Data Result diagrams: 06/29/20 20:17 06/29/20 20:17 Labs: Lab Results 06/29/20 06/29/20 06/29/20 Range/Units 20:17 20:17 20:17 WBC 9.9 (4.5-11.0) X10^3/uL RBC 4.47 (4.0-5.2) X10^6/uL Hgb 13.0 (12.0-16.0) g/dL Hct 37.9 (36-46) % MCV 84.7 (80-100) fL MCH 29.1 (26-34) PG MCHC 34.3 (30-36) % RDW 13.1 (11.6-14.8) % Plt Count 222 (150-400) X10^3/uL Neut % (Auto) 56.6 (50-75) % Lymph % (Auto) 33.7 (25-40) % Hardy % (Auto) 6.9 (3-14) % Eos % (Auto) 2.2 (2-4) % Baso % (Auto) 0.6 (0-2) % Neut # (Auto) 5600 (3582-7835) /uL Lymph # (Auto) 3300 (4208-2185) /uL Hardy # (Auto) 700 (0-900) /uL Eos # (Auto) 200 (0-450) /uL Baso # (Auto) 100 (0-100) /uL Sodium 137 (137-145) mmol/L Potassium 3.2 L (3.4-5.1) mmol/L Chloride 104 (98-107) mmol/L Carbon Dioxide 25 (22-32) mmol/L BUN 9 (7-17) mg/dL Creatinine 0.53 (0.52-1.04) mg/dL Estimated GFR > 60.0 (>60) mL/min BUN/Creatinine Ratio 17.0 (6-22) Glucose 77 (70-100) mg/dL Calcium 9.3 (8.4-10.2) mg/dL Total Bilirubin 0.5 (0.2-1.3) mg/dL AST 22 (14-36) IU/L ALT 16 (<35) IU/L Alkaline Phosphatase 58 (38-126) U/L Total Protein 7.2 (6.3-8.2) g/dL Albumin 4.4 (3.5-5.0) g/dL Globulin 2.8 (1.7-4.1) g/dL Albumin/Globulin Ratio 1.6 (1.0-2.8) HCG, Quant 720929 mIU/mL Urine RBC (0-5/HPF) Urine WBC (0-5/HPF) Urine Bacteria (None) Ur Culture Indicated? Blood Type B Positive 06/29/20 Range/Units 20:35 WBC (4.5-11.0) X10^3/uL RBC (4.0-5.2) X10^6/uL Hgb (12.0-16.0) g/dL Hct (36-46) % MCV (80-100) fL MCH (26-34) PG MCHC (30-36) % RDW (11.6-14.8) % Plt Count (150-400) X10^3/uL Neut % (Auto) (50-75) % Lymph % (Auto) (25-40) % Hardy % (Auto) (3-14) % Eos % (Auto) (2-4) % Baso % (Auto) (0-2) % Neut # (Auto) (0838-9228) /uL Lymph # (Auto) (4996-1587) /uL Hardy # (Auto) (0-900) /uL Eos # (Auto) (0-450) /uL Baso # (Auto) (0-100) /uL Sodium (137-145) mmol/L Potassium (3.4-5.1) mmol/L Chloride (98-107) mmol/L Carbon Dioxide (22-32) mmol/L BUN (7-17) mg/dL Creatinine (0.52-1.04) mg/dL Estimated GFR (>60) mL/min BUN/Creatinine Ratio (6-22) Glucose (70-100) mg/dL Calcium (8.4-10.2) mg/dL Total Bilirubin (0.2-1.3) mg/dL AST (14-36) IU/L ALT (<35) IU/L Alkaline Phosphatase (38-126) U/L Total Protein (6.3-8.2) g/dL Albumin (3.5-5.0) g/dL Globulin (1.7-4.1) g/dL Albumin/Globulin Ratio (1.0-2.8) HCG, Quant mIU/mL Urine RBC 5-10/hpf H (0-5/HPF) Urine WBC None seen (0-5/HPF) Urine Bacteria None seen (None) Ur Culture Indicated? Cult not indicated Blood Type Urine Dip Bedside Urine Glucose Negative Bedside Urine Bilirubin - Negative Bedside Urine Ketone - Negative Urine Specific [place] 1.020 Bedside Urine Occult Blood +++ Bedside Urine pH 6.0 Bedside Urine Protein - Negative Bedside Urine Urobilinogen +/- 1mg Bedside Urine Nitrite - Negative Bedside Urine Leukocytes - Negative Esterase Imaging Data US - OB: Radiologist's Impression: IUP 10 weeks/4 days FHT 157 no hemorrhage identified MDM Narrative Medical decision making narrative: at 9 weeks with cramping and spotting. Patient in minimal pain with minimal bleeding and very reassuring labs and ultrasound. Initial considerations of first-trimester bleeding including ectopic , threatened , and implantation bleeding all considered. Ultrasound demonstrates intrauterine with no obvious abnormalities. Extensive discussion at the bedside with patient and her mother about the possibility of early threatened and patient verbalizes her understanding. She has been given extensive return precautions and has had her questions answered to her apparent satisfaction. Discharge Plan Departure Patient Disposition: Home Clinical Impression: Vaginal bleeding affecting early , , spontaneous threatened, Hypokalemia Discharge Date/Time: 06/29/20 23:04 Instructions: DI for Threatened , DI for Hypokalemia, DI for Vaginal Bleeding During Activity Restrictions/Additional Instructions: *You have been diagnosed with [1st trimester bleeding, very reassuring lab work and ultrasound, however early miscarriage cannot be ruled out. Please continue to practice pelvic rest as discussed with Dr. Mcclendon. Additionally, your potassium is a bit low and I have written a supplement for you] *What to do: *Take medications as directed: Prescription sent to [facility] in [place] *Follow up with your OB provider in 2-3 days, call for an appointment. Let them know you were seen in the Emergency Department and that we ask that you be seen in follow up *Return to ER if you should have any new, worsening or concerning symptoms, such as [increasing pain, fever greater than 101 F, increased bleeding through 1 pad per hour or more, or other bothersome symptoms] Prescriptions: New potassium chloride 20 mEq tablet extended release 20 meq PO DAILY Qty: 7 RF: 0 No Action prenat.vits,mary,[id number] Tablet 1 tab PO DAILY RF: 0 docusate sodium [Colace] 100 mg capsule 100 mg PO DAILY RF: 0 Referrals: Coleman Fisher ARNP [Primary Care Provider] - Teresita Mcclendon MD [Physician] -
[2020-06-29 21:16] LABS: HCG Quantitative /Beta subunit 118820 mIU/mL
[2020-06-29 22:00] VITALS: BP 109/65; PULSE 65; RESP 14; O2SAT 99
[2020-06-29 22:30] VITALS: BP 101/58; PULSE 60; RESP 12; O2SAT 100
[2020-06-29 23:04] VITALS: TEMP 36.7
== END 2020-06-29 23:04 | disposition home or self-care (01) ==
PROVIDERS: Emergency Provider Emergency Medicine; PCP Nurse Practitioner Family
DX: O20.0 Threatened abortion (principal); Z3A.09 9 weeks gestation of pregnancy
CPT/HCPCS: 36415; 76801; 80053; 81003; 81015; 84702; 85025; 86900; 86901; 99284

== ENCOUNTER → 2020-07-02 16:14 | Outpatient (CLI) | payer OTHER, MEDICAID, SELFPAY ==
[2020-07-02 17:27] LABS: Appearance Urine UA CLEAR; Bilirubin Urine UA NEGATIVE (NEGATIVE); Color Urine UA YELLOW; Glucose Urine UA NEGATIVE (Negative); Ketones Urine UA NEGATIVE (NEGATIVE); Leukocyte Esterase Urine UA NEGATIVE (NEGATIVE); Nitrite Urine UA NEGATIVE (Negative); Occult Blood Urine UA 3+ (Negative); Protein Urine UA NEGATIVE (Negative); Specific Gravity Urine UA 1.025 (1.000-1.035); Urobilinogen Urine UA 0.2 E.U./dL (0.2)
[2020-07-02 17:31] LABS: Add Manual Diff / Slide Review NO; Basophils Absolute Auto 0 /uL (0-100); Basophils Percent Auto 0.4 % (0-2); Eosinophils Absolute Auto 300 /uL (0-450); Hematocrit 36.7 % (36-46); Hemoglobin 12.6 g/dL (12.0-16.0); Lymphocytes Absolute Auto 2900 /uL (1100-4500); Lymphocytes Percent Auto 30.6 % (25-40); Mean Corpuscular HGB Conc 34.4 % (30-36); Mean Corpuscular Hemoglobin 29.2 PG (26-34); Mean Corpuscular Volume 84.9 fL (80-100); Monocytes Absolute Auto 500 /uL (0-900); Monocytes Percent Auto 5.3 % (3-14); Neutrophils Absolute Auto 5800 /uL (1500-7000); Neutrophils Percent Auto 60.7 % (50-75); Platelet Count 220 X10^3/uL (150-400); Red Blood Cell Count 4.32 X10^6/uL (4.0-5.2); Red Cell Distribution Width 12.8 % (11.6-14.8); White Blood Cell Count 9.5 X10^3/uL (4.5-11.0)
[2020-07-02 17:34] LABS: Specimen Label MYRIAD KIT TEST
[2020-07-02 17:46] LABS: RBC Urine 5-10/HPF (0-5/HPF); Squamous Epithelial Cell Urine 10-30 /HPF (0-5/HPF); Transitional Epi Cells Urine 1-5/HPF (0-5/HPF); WBC Urine 0-1/HPF (0-5/HPF)
[2020-07-02 17:47] LABS: Bacteria Urine Few (2-10)
[2020-07-03 05:52] LABS: Varicella IgG Antibody 1051 index (Immune >165)
[2020-07-03 06:35] LABS: RPR Screen Non Reactive (Non Reactive)
[2020-07-03 17:09] LABS: Hepatitis B Surface Antigen NEGATIVE s/c (NEGATIVE); Rubella Antibody IgG 13.9 IU/mL (>15)
[2020-07-03 17:29] LABS: HIV 1 & 2 Ab/Ag 4th Gen Combo NEGATIVE (NEGATIVE); Hep C Virus Ab w/Reflex Quant NEGATIVE s/c (NEGATIVE)
== END ==
PROVIDERS: PCP Nurse Practitioner Family; Referring Provider Obstetrics & Gynecology; Visit Provider Obstetrics & Gynecology
DX: Z34.81 Encounter for supervision of other normal pregnancy, first trimester (principal); Z3A.10 10 weeks gestation of pregnancy
CPT/HCPCS: 36415; 80055; 81003; 81015; 86787; 86803; 86850; 86900; 86901; 87086; 87389

== ENCOUNTER 2020-07-10 11:28 | Emergency (ER) | payer OTHER, MEDICAID, SELFPAY ==
[2020-07-10 11:40] VITALS: BP 120/63; PULSE 77; RESP 20; TEMP 36.8; O2SAT 97; BMI 20.8
[2020-07-10 12:06] LABS: Add Manual Diff / Slide Review NO; Basophils Absolute Auto 100 /uL (0-100); Basophils Percent Auto 0.6 % (0-2); Eosinophils Absolute Auto 200 /uL (0-450); Eosinophils Percent Auto 2.1 % (2-4); Hematocrit 37.5 % (36-46); Hemoglobin 12.9 g/dL (12.0-16.0); Lymphocytes Absolute Auto 2500 /uL (1100-4500); Lymphocytes Percent Auto 23.3 % (25-40); Mean Corpuscular HGB Conc 34.2 % (30-36); Mean Corpuscular Volume 84.8 fL (80-100); Monocytes Absolute Auto 500 /uL (0-900); Neutrophils Absolute Auto 7300 /uL (1500-7000); Platelet Count 217 X10^3/uL (150-400); Red Blood Cell Count 4.43 X10^6/uL (4.0-5.2); Red Cell Distribution Width 12.8 % (11.6-14.8); White Blood Cell Count 10.6 X10^3/uL (4.5-11.0)
[2020-07-10 12:13] LABS: Alanine Aminotransferase 15 IU/L (<35); Albumin 4.2 g/dL (3.5-5.0); Albumin Globulin Ratio 1.5 (1.0-2.8); Alkaline Phosphatase 50 U/L (38-126); Aspartate Aminotransferase 19 IU/L (14-36); BUN Creatinine Ratio 20.4 (6-22); Bilirubin Total 0.4 mg/dL (0.2-1.3); Blood Urea Nitrogen 10 mg/dL (7-17); Carbon Dioxide 24 mmol/L (22-32); Chloride 105 mmol/L (98-107); Estimated Glomerular Filt Rate > 60.0 mL/min (>60); Globulin 2.8 g/dL (1.7-4.1); Glucose 90 mg/dL (70-100); HEMOLYSIS < 15 (0-50); Potassium 3.5 mmol/L (3.4-5.1); Sodium 136 mmol/L (137-145)
--- NOTE | 2020-07-10 12:31 | DI.US.S_ITS ---
PROCEDURE: US OB <= 14 WEEKS FETUS INDICATIONS: PAIN, BLEEDING OUTSIDE/PRIOR DATING DATA: Last menstrual period (LMP): Unknown. LMP-based estimated date of delivery (THALIA): Unknown. First dating scan (date and location): 07/10/2020. Estimated date of delivery (THALIA) from first dating scan: 01/22/2021. TECHNIQUE: Real-time scanning was performed of the fetus and maternal pelvic organs, with image documentation. COMPARISON: [facility], , OB <= 14 WEEKS FETUS, 06/29/2020, 21:40. FINDINGS: Embryo: De living intrauterine . Heart rate 165 bpm. [place] lump length measures 5.3 cm corresponding to gestational age of 12 weeks 0 days. Placenta is posterior fundal. There is now a large U shaped and likely subchorionic hemorrhage measuring 7 x 4.8 x 1.7 cm. This appears to emanate from the left fundus towards the internal cervical os. The cervix is closed. No funneling. Measurement variability in dating: +/- 4 weeks by LMP, +/- 7 days by mean sac diameter (use before 6 weeks gestation if crown-rump length not able to be measured), +/- 5 days by crown-rump length (up to 8 weeks 6 days gestation), +/- 7 days by crown-rump length (up to 13 weeks 6 days gestation). Maternal organs: Ovaries are not identified. IMPRESSION: 1. De living intrauterine at 12 weeks 0 days based on today's crown rump length. heart rate 165 bpm. 2. New large perigestational hemorrhage measuring at 7 cm. This appears to emanate from the left fundus placental margin. -recommend short-term interval follow-up ultrasound. Comment: Findings were discussed with BAILEY Stanford at the time of dictation. Dictated by: Fede Greer M.D. on 07/10/2020 at 13:08 Approved by: Fede Greer M.D. on 07/10/2020 at 13:17
[2020-07-10] MEDS: ACETAMINOPHEN 325 MG TABLET 650 MG PO (12:49)
[2020-07-10 12:54] LABS: HCG Quantitative /Beta subunit 117020 mIU/mL
--- NOTE | 2020-07-10 13:17 | ED_ITS ---
HPI - <BAILEY Stanford - Last Filed: 07/11/20 01:42> General Chief complaint: Vaginal Bleeding Stated complaint: CRAMPING,BLEEDING,12 WEEKS PREG Time Seen by Provider: 07/10/20 11:47 Source: patient Mode of arrival: Ambulatory Limitations: no limitations History of Present Illness HPI Narrative: This is a 25-year-old female, current marijuana smoker, history with presents to ED with significant other with chief complain of vaginal bleeding with abdominal cramping. Patient reports she is about 11 weeks and is not sure last LMP. She was here June 29 and evaluated for vaginal bleeding at that time. Ultrasound and blood tests were completed and verified IUP and QHcg of 11,8820. Patient reports another vaginal bleeding started 7:00 a.m. this morning with bilateral low abdomen cramping discomfort and radiates to periumbilical region. Patient reports vaginal bleeding like starting a period but more than just spotting. Patient feels cautious of vaginal bleeding when stands up without any clots or tissues. Patient has been using toilet tissue instead of pad and had changed twice so far. Patient reports had intercourse yesterday before the vaginal bleeding started. Patient called Dr. Starr's office and instructed to going to ED for an evaluation. Expected delivery date on 01/26/2021. She has not taken any medications before coming into ED. she denies chest pain, dyspnea, lightheadedness or near syncope. Patient reports had on intercourse last night. Patient : Yes Expected Date of Delivery: 01/26/21 Related Data Home Medications Medication Instructions Recorded Confirmed docusate sodium 100 mg capsule 100 mg PO DAILY 06/14/20 06/20/20 prenat.vits,mary,arm-ykop-vbjiq 1 tab PO DAILY 06/14/20 06/20/20 Previous Rx's Medication Instructions Recorded potassium chloride 20 meq PO DAILY #7 tab 06/29/20 Allergies Allergy/AdvReac Type Severity Reaction Status Date / Time No Known Drug Allergies Allergy Verified 06/29/20 19:46 Review of Systems <BAILEY Stanford - Last Filed: 07/11/20 01:42> Review of Systems Narrative: General: Denies fever, chills, fatigue, malaise, sweats. HEENT: Denies sinus pain, ear pain, sore throat, difficulty swallowing, dizziness. Respiratory: Denies dyspnea, cough, wheezing, hemoptysis, sputum. Cardiovascular: Denies chest pain, palpitations, orthopnea, edema. Gastrointestinal: See HPI : See HPI Musculoskeletal: Denies weakness, joint pain or bony pain. Skin: Denies rash, skin lesions, or other. Neurologic: Denies weakness, headache, numbness, change in speech, confusion, seizures, incoordination. Psychiatric: No concerning psychosocial issues. 12-point review of systems is negative except for those stated above. PMFSH - <BAILEY Stanford - Last Filed: 07/11/20 01:42> Past Medical History Patient : Yes Expected Date of Delivery: 01/26/21 Family History Family history: Reports non-contributory Exam <BAILEY Stanford - Last Filed: 07/11/20 01:42> Narrative Exam Narrative: General appearance: well developed, thin appearing, in no acute distress. Head: normocephalic, atraumatic, no scalp lesions, non-tender. ENT: Hearing grossly intact. Mucous membrane moist, no mucosal lesion. Throat without erythema, tonsillar hypertrophy or exudate. Uvula in midline, airway patent. Neck/Thyroid: neck supple, full range of motion, no visible masses or meningeal signs. No JVD, non-tender without lymphadenopathy. Skin: no suspicious rashes, lesions over visible areas. Warm and dry and appr opriate color for ethnicity. Heart: no clubbing, no cyanosis, no edema. S1 and S2 normal. RRR w/o murmurs, clicks, or bruits. Lungs: Breathing even and unlabored. No stridor. No accessory muscles used. Able to speak in full sentences. Chest: normal shape and expansion. Abdomen: non-obese, non-distended. Mild tenderness to palpate periumbilical region. No rebound tenderness. Neurologic: alert and oriented. Cognitive exam, ZONING TECHNICIAN and PNS grossly intact on informal exam. Psych: good eye contact, normal affect. Initial Vital Signs Initial Vital Signs: Vital Signs Temperature 98.3 F 07/10/20 11:40 Pulse Rate 77 07/10/20 11:40 Respiratory Rate 20 07/10/20 11:40 Blood Pressure 120/63 07/10/20 11:40 Pulse Oximetry 97 10/13/20 11:40 Back/Spine/Pelvis Back: normal to inspection, No back tenderness and No CVA tenderness <Sabas Serrato MD - Last Filed: 07/13/20 13:00> Initial Vital Signs Initial Vital Signs: Vital Signs Temperature 98.3 F 07/10/20 11:40 Pulse Rate 77 07/10/20 11:40 Respiratory Rate 20 07/10/20 11:40 Blood Pressure 120/63 07/10/20 11:40 Pulse Oximetry 97 07/10/20 11:40 Scores <Cuco MarinoBAILEY Grider - Last Filed: 07/11/20 01:42> GCS [place] coma scale eye opening: Spontaneous [place] coma scale verbal response: Orientated [place] coma scale motor response: Obey commands [place] coma scale total score: 15 Course <Cuco PlunkettBAILEY - Last Filed: 07/11/20 01:42> Orders Ordered: Discontinued Medications Acetaminophen (Tylenol) 650 mg PO NOW ONE Stop: 07/10/20 12:26 Last Admin: 07/10/20 12:49 Dose: 650 mg Documented by: PATRICK Reevaluation(s) Reevaluation #1: Patient reports still has some gushing of vaginal bleeding w/o clots when she went to bathroom and standing. Waiting for Dr. Starr's phone call. Time: 13:18 Reevaluation #2: Radiologist called to inform on US test result. A large subchorionic tear measured about 7 cm near cervix which is a new finding since June 29. This appears to be emanate from the left fundus placental margin. Suggesting a short follow-up for another ultrasound test Time: 13:13 Consultations Consultation #1: Dr. Mcclendon consulted with ultrasound findings. Dr. Mcclendon recommended bed rest with strict pelvic rest and follow-up with her at the office as scheduled. Time: 13:55 Vital Signs Vital signs: Vital Signs - 8 hr 07/10/20 11:40 07/10/20 13:30 07/10/20 13:33 Temperature 98.3 F Pulse Rate 77 63 Respiratory Rate 20 16 Blood Pressure 120/63 109/58 L 109/58 L Pulse Oximetry 97 100 07/10/20 13:34 Temperature Pulse Rate 64 Respiratory Rate Blood Pressure Pulse Oximetry 100 <Sabas Serrato MD - Last Filed: 07/13/20 13:00> Orders Ordered: Discontinued Medications Acetaminophen (Tylenol) 650 mg PO NOW ONE Stop: 07/10/20 12:26 Last Admin: 07/10/20 12:49 Dose: 650 mg Documented by: MMINOR Vital Signs Vital signs: Vital Signs - 8 hr 07/10/20 11:40 07/10/20 13:30 07/10/20 13:33 Temperature 98.3 F Pulse Rate 77 63 Respiratory Rate 20 16 Blood Pressure 120/63 109/58 L 109/58 L Pulse Oximetry 97 100 07/10/20 13:34 Temperature Pulse Rate 64 Respiratory Rate Blood Pressure Pulse Oximetry 100 MDM - OB/Uterine Contractions <Cuco BAILEY Plunkett - Last Filed: 07/11/20 01:42> Differential Diagnosis Differential diagnosis: Likely other (Threatened , placenta aruptio, subchorionic rupture, placenta previa) Medical Records Attestation: I reviewed the patient's medical records. Lab Data Attestation: I reviewed the patient's lab results. Result diagrams: 07/10/20 11:53 07/10/20 11:53 Labs: Lab Results 07/10/20 07/10/20 07/10/20 Range/Units 11:53 11:53 11:53 WBC 10.6 (4.5-11.0) X10^3/uL RBC 4.43 (4.0-5.2) X10^6/uL Hgb 12.9 (12.0-16.0) g/dL Hct 37.5 (36-46) % MCV 84.8 (80-100) fL MCH 29.0 (26-34) PG MCHC 34.2 (30-36) % RDW 12.8 (11.6-14.8) % Plt Count 217 (150-400) X10^3/uL Neut % (Auto) 69.0 (50-75) % Lymph % (Auto) 23.3 L (25-40) % [place] % (Auto) 5.0 (3-14) % Eos % (Auto) 2.1 (2-4) % Baso % (Auto) 0.6 (0-2) % Neut # (Auto) 7300 H (6672-9135) /uL Lymph # (Auto) 2500 (7200-4128) /uL [place] # (Auto) 500 (0-900) /uL Eos # (Auto) 200 (0-450) /uL Baso # (Auto) 100 (0-100) /uL Sodium 136 L (137-145) mmol/L Potassium 3.5 (3.4-5.1) mmol/L Chloride 105 (98-107) mmol/L Carbon Dioxide 24 (22-32) mmol/L BUN 10 (7-17) mg/dL Creatinine 0.49 L (0.52-1.04) mg/dL Estimated GFR > 60.0 (>60) mL/min BUN/Creatinine Ratio 20.4 (6-22) Glucose 90 (70-100) mg/dL Calcium 9.0 (8.4-10.2) mg/dL Total Bilirubin 0.4 (0.2-1.3) mg/dL AST 19 (14-36) IU/L ALT 15 (<35) IU/L Alkaline Phosphatase 50 (38-126) U/L Total Protein 7.0 (6.3-8.2) g/dL Albumin 4.2 (3.5-5.0) g/dL Globulin 2.8 (1.7-4.1) g/dL Albumin/Globulin Ratio 1.5 (1.0-2.8) HCG, Quant 990906 mIU/mL Blood Type B Positive Urine Dip Bedside Urine Glucose Negative Bedside Urine Bilirubin - Negative Bedside Urine Ketone - Negative Urine Specific [place] 1.030 Bedside Urine Occult Blood +++ Bedside Urine pH 6 Bedside Urine Protein - Negative Bedside Urine Urobilinogen +/- 1mg Bedside Urine Nitrite - Negative Bedside Urine Leukocytes - Negative Esterase Imaging Data US - OB: Radiologist's Impression: [address] [address] Ultrasound Report Signed Patient: Milana Lal [facility]#: [id number] : 1995Acct:[id number] Age/Sex: 25 / FDate of Service: 07/10/20 Loc: ED Accession Number: [id number] Procedure: US OB <= 14 weeks fetus Ordering Provider: Cuco Plunkett PROCEDURE: US OB <= 14 WEEKS FETUS INDICATIONS: PAIN, BLEEDING OUTSIDE/PRIOR DATING DATA: Last menstrual period (LMP): Unknown. LMP-based estimated date of delivery (THALIA): Unknown. First dating scan (date and location): 07/10/2020. Estimated date of delivery (THALIA) from first dating scan: 01/22/2021. TECHNIQUE: Real-time scanning was performed of the fetus and maternal pelvic organs, with image documentation. COMPARISON: [facility], , US OB <= 14 WEEKS FETUS, 06/29/2020, 21:40. FINDINGS: Embryo: De living intrauterine . Heart rate 165 bpm. [place] lump length measures 5.3 cm corresponding to gestational age of 12 weeks 0 days. Placenta is posterior fundal. There is now a large U shaped and likely subchorionic hemorrhage measuring 7 x 4.8 x 1.7 cm. This appears to emanate from the left fu ndus towards the internal cervical os. The cervix is closed. No funneling. Measurement variability in dating: +/- 4 weeks by LMP, +/- 7 days by mean sac diameter (use before 6 weeks gestation if crown-rump length not able to be measured), +/- 5 days by crown-rump length (up to 8 weeks 6 days gestation), +/- 7 days by crown-rump length (up to 13 weeks 6 days gestation). Maternal organs: Ovaries are not identified. IMPRESSION: 1. De living intrauterine at 12 weeks 0 days based on today's crown rump length. heart rate 165 bpm. 2. New large perigestational hemorrhage measuring at 7 cm. This appears to emanate from the left fundus placental margin. -recommend short-term interval follow-up ultrasound. Comment: Findings were discussed with BAILEY Stanford at the time of dictation. Dictated by: Fede Greer M.D. on 07/10/2020 at 13:08 Approved by: Fede Greer M.D. on 07/10/2020 at 13:17 MDM Narrative Medical decision making narrative: This is a 25-year-old female with history with around 11 week EGA presents to ED with vaginal bleeding with periumbilical abdominal pain which started this morning at 7:00 a.m.. She describes vaginal bleeding as starting period but more than spotting. Patient had intercourse yesterday. Patient is asymptomatic such as chest pain, dyspnea, or dizziness. Unsure of LMP. Old Record shows patient's blood type is B positive. Stable H&H today of 12.9/37.5. Normal platelet counts. Unremarkable chemistry test and normal liver function test. No indication for UTI but positive urine occult blood. Serum QhCG today is 117,020 as compared to 06/29/20, 118,820. Patient is hemodynamically stable. US OB shows single living intrauterine heart rate in 165. Gestational age she is 12 weeks estimated. There is a new large perigestational hemorrhage measuring at 7 cm. This appears to be emanated from the left fundus placenta her margin and recommended short-term interval follow-up ultrasound. Findings were discussed with Dr. Mcclendon patient's OB provider. She recommended strict pelvic rest and bed rest and to follow-up with her at the clinic as scheduled. Patient advised to take foth-roq-[id number] Tylenol for pain management. She and spouse advised Dr. Mcclendon's recommendation strict pelvic rest and they both verbalized understanding. Return precautions were discussed with patient and spouse and they both verbalized understanding in agreement with treatment plan. After the patient was discharged, patient's spouse called to inform that patient passed a large blood clot in the car and the patient is quite concerned. He was informed since the patient was in resting position in bed while in ED, vaginal bleeding is likely pulled in vaginal vault and caused a clot and she probably passed this. Advised continue to monitor vaginal bleeding and advised return to ED if she soaks large pad every hour for 3 hrs, otherwise continue with bedrest and to hydrate well. He verbalized understanding. <Sabas Serrato MD - Last Filed: 07/13/20 13:00> Lab Data Labs: Lab Results 07/10/20 07/10/20 07/10/20 Range/Units 11:53 11:53 11:53 WBC 10.6 (4.5-11.0) X10^3/uL RBC 4.43 (4.0-5.2) X10^6/uL Hgb 12.9 (12.0-16.0) g/dL Hct 37.5 (36-46) % MCV 84.8 (80-100) fL MCH 29.0 (26-34) PG MCHC 34.2 (30-36) % RDW 12.8 (11.6-14.8) % Plt Count 217 (150-400) X10^3/uL Neut % (Auto) 69.0 (50-75) % Lymph % (Auto) 23.3 L (25-40) % [place] % (Auto) 5.0 (3-14) % Eos % (Auto) 2.1 (2-4) % Baso % (Auto) 0.6 (0-2) % Neut # (Auto) 7300 H (2535-6549) /uL Lymph # (Auto) 2500 (8623-1558) /uL [place] # (Auto) 500 (0-900) /uL Eos # (Auto) 200 (0-450) /uL Baso # (Auto) 100 (0-100) /uL Sodium 136 L (137-145) mmol/L Potassium 3.5 (3.4-5.1) mmol/L Chloride 105 (98-107) mmol/L Carbon Dioxide 24 (22-32) mmol/L BUN 10 (7-17) mg/dL Creatinine 0.49 L (0.52-1.04) mg/dL Estimated GFR > 60.0 (>60) mL/min BUN/Creatinine Ratio 20.4 (6-22) Glucose 90 (70-100) mg/dL Calcium 9.0 (8.4-10.2) mg/dL Total Bilirubin 0.4 (0.2-1.3) mg/dL AST 19 (14-36) IU/L ALT 15 (<35) IU/L Alkaline Phosphatase 50 (38-126) U/L Total Protein 7.0 (6.3-8.2) g/dL Albumin 4.2 (3.5-5.0) g/dL Globulin 2.8 (1.7-4.1) g/dL Albumin/Globulin Ratio 1.5 (1.0-2.8) HCG, Quant 324562 mIU/mL Blood Type B Positive Urine Dip Bedside Urine Glucose Negative Bedside Urine Bilirubin - Negative Bedside Urine Ketone - Negative Urine Specific [place] 1.030 Bedside Urine Occult Blood +++ Bedside Urine pH 6 Bedside Urine Protein - Negative Bedside Urine Urobilinogen +/- 1mg Bedside Urine Nitrite - Negative Bedside Urine Leukocytes - Negative Esterase Discharge Plan Departure Patient Disposition: Home Clinical Impression: Vaginal bleeding affecting early , , spontaneous threatened Discharge Date/Time: 07/10/20 14:10 Instructions: DI for Threatened , DI for Vaginal Bleeding During Pre gnancy Activity Restrictions/Additional Instructions: You have been diagnosed with [vaginal bleeding in 1st trimester, threatened . Sodium and chloride electrolytes are borderline low.l]. What to do: *Take your medications as directed. You can continue with current medications and take [id number] Tylenol as needed for discomfort. Tylenol 650 to 1000 mg up to 3 to 4 times a day as needed for pain. Please have sports drink to supplement sodium and potassium for borderline low and hydrate adequately. *Follow up with Dr. Mcclendon as scheduled. I spoke with Dr. Mcclendon on the phone to inform ultrasound and lab test results. Let them know you were seen in the ED and that we asked you to be seen in follow up. Bed rest with strict pelvic rest until you are cleared by Dr. Mcclendon. No intercourse, douching, tampon use to rest pelvic. *Return to ED if you have any new, worsening, or concerning symptoms, such as [fever, severe vaginal bleeding that requires regular pad change every hour for 3 hours, chest pain, breathing difficulty, unable to tolerate fluids, urinary symptoms or any acute concerns]. Prescriptions: No Action prenat.vits,mary,eij-ujet-qxojb Tablet 1 tab PO DAILY RF: 0 docusate sodium [Colace] 100 mg capsule 100 mg PO DAILY RF: 0 potassium chloride 20 mEq tablet extended release 20 meq PO DAILY Qty: 7 RF: 0 Referrals: Coleman Fisher ARNP [Primary Care Provider] - Teresita Mcclendon MD [Physician] - <Sabas Serrato MD - Last Filed: 07/13/20 13:00> Cosign ED Attending Cosignature Attestation: I was immediately available in the department for consultation. This documentation has been reviewed and I agree with assessment and plan. Supervised by Sabas Serrato MD
[2020-07-10 13:30] VITALS: BP 109/58; PULSE 63; RESP 16; O2SAT 100
[2020-07-10 13:33] VITALS: BP 109/58
[2020-07-10 13:34] VITALS: PULSE 64; O2SAT 100
== END 2020-07-10 14:10 | disposition home or self-care (01) ==
PROVIDERS: Emergency Medicine; Emergency Provider Nurse Practitioner Family; PCP Nurse Practitioner Family
DX: O20.0 Threatened abortion (principal); Z3A.12 12 weeks gestation of pregnancy
CPT/HCPCS: 36415; 76801; 80053; 81003; 84702; 85025; 86900; 86901; 99284

== ENCOUNTER → 2020-08-16 14:42 | Outpatient (CLI) | payer OTHER, MEDICAID, SELFPAY ==
[2020-08-18 20:07] LABS: Gest Age on Col Date 16.7 weeks (.); Gestational Age Ultrasound (.); Insulin Dep Diabetes No (.); OSBR Risk 1IN 2457 (.); Results Report (.); Test Results *Screen Negative* (.)
== END ==
PROVIDERS: PCP Nurse Practitioner Family; Referring Provider Obstetrics & Gynecology; Visit Provider Obstetrics & Gynecology
DX: Z34.82 Encounter for supervision of other normal pregnancy, second trimester (principal); Z3A.16 16 weeks gestation of pregnancy
CPT/HCPCS: 36415; 82105

== ENCOUNTER → 2020-09-06 09:11 | Outpatient (CLI) | payer OTHER, MEDICAID, SELFPAY ==
--- NOTE | 2020-09-06 09:13 | DI.US.S_ITS ---
PROCEDURE: US OB >= 14 WEEKS FETUS INDICATIONS: ANATOMY OUTSIDE/PRIOR DATING DATA: First dating scan (date and location): 07/10/2020 . Estimated date of delivery (THALIA) from first dating scan: 01/22/2021 . TECHNIQUE: Real-time scanning was performed of the fetus, with image documentation and biometric measurements. Endovaginal scanning: No COMPARISON: [facility], , OB >= 14 WEEKS FETUS, 08/16/2020, 14:31. FINDINGS: General: A single living intrauterine gestation is present. Presentation: Transverse. Placenta: Placental position is left posterior fundal , without previa. Amniotic fluid index: 15.4 cm, normal range is 5-24 cm. heart rate: 155 beats per minute. Maternal cervical canal: 3.2 cm long. Normal lower limit is 2.5 cm. biometrics: Biparietal diameter: 20 weeks 1 day Head circumference: 20 weeks 2 days Abdominal circumference: 20 weeks 4 days Femur length: 19 weeks 6 days Estimated gestational age from initial scan: 20 weeks 2 days Composite gestational age from present scan: 20 weeks 2 days Estimated weight and percentile: 340 g; 40 second percentile Measurement variability for biometric dating: +/- 7 days from 14 weeks to 15 weeks 6 days gestation, +/- 10 days from 16 weeks to 21 weeks 6 days gestation, +/- 2 weeks from 22 weeks to 27 weeks 6 days gestation, +/- 3 weeks for 28 weeks gestation or later. weight reference: 4500 g or EFW >90/95% is considered macrosomia or large for gestational age. EFW <10% is small for gestational age. EFW 5% or less is considered intra-uterine growth restriction. Anatomic survey: Neuro: Ventricles are non-dilated at less than 10 mm. Cisterna magna is normal at 3-11 mm. Cerebellum is normal in size and morphology. Nuchal skin fold: Normal at less than 6 mm between 14-21 weeks gestational age. Face: Nose and lips, facial profile are normal. Spine: No evidence for spina bifida. Heart: 4-chambered heart is present, with normal ventricular outflow tracts. Diaphragm: Diaphragm is intact. Stomach: Left-sided stomach is present. Kidneys: No hydronephrosis. Normal is less than 5 mm in 2nd trimester, less than 7 mm in 3rd trimester. Cord: 3-vessel cord has orthotopic insertion. Bladder: Normal in size. Extremities: All 4 extremities identified. IMPRESSION: 1. Single living IUP redemonstrated and interval growth is normal. 2. Normal anatomic survey. Dictated by: Nemesio Hanley [facility] Interpreted: Jaron Lopez MD on 09/06/2020 at 10:22 Approved by: Jaron Lopez M.D. on 09/06/2020 at 14:35
== END ==
PROVIDERS: PCP Nurse Practitioner Family; Referring Provider Obstetrics & Gynecology; Visit Provider Obstetrics & Gynecology
DX: Z34.82 Encounter for supervision of other normal pregnancy, second trimester (principal); Z3A.20 20 weeks gestation of pregnancy
CPT/HCPCS: 76811

== ENCOUNTER → 2020-10-29 15:39 | Outpatient (CLI) | payer OTHER, MEDICAID, SELFPAY ==
[2020-10-29 17:06] LABS: Hemoglobin 12.6 g/dL (12.0-16.0); Mean Corpuscular HGB Conc 34.9 % (30-36); Mean Corpuscular Hemoglobin 30.6 PG (26-34); Mean Corpuscular Volume 87.6 fL (80-100); Platelet Count 170 X10^3/uL (150-400); Red Blood Cell Count 4.11 X10^6/uL (4.0-5.2); Red Cell Distribution Width 12.8 % (11.6-14.8); White Blood Cell Count 8.5 X10^3/uL (4.5-11.0)
[2020-10-29 17:17] LABS: GTT (PREG) 1 Hour PP 50gm Dose 96 mg/dL (76-139)
[2020-10-29 17:19] LABS: Alanine Aminotransferase 11 IU/L (<35); Albumin 3.3 g/dL (3.5-5.0); Albumin Globulin Ratio 1.3 (1.0-2.8); Alkaline Phosphatase 55 U/L (38-126); Aspartate Aminotransferase 19 IU/L (14-36); BUN Creatinine Ratio 13.3 (6-22); Bilirubin Total 0.2 mg/dL (0.2-1.3); Blood Urea Nitrogen 6 mg/dL (7-17); Carbon Dioxide 28 mmol/L (22-32); Chloride 105 mmol/L (98-107); Estimated Glomerular Filt Rate > 60.0 mL/min (>60); Globulin 2.6 g/dL (1.7-4.1); Glucose 99 mg/dL (70-100); HEMOLYSIS < 15 (0-50); Potassium 3.4 mmol/L (3.4-5.1); Sodium 135 mmol/L (137-145); Total Protein 5.9 g/dL (6.3-8.2)
[2020-10-29 18:02] LABS: TSH w/ Reflex to FT4 0.71 uIU/mL (0.47-4.68)
== END ==
PROVIDERS: Obstetrics & Gynecology; PCP Nurse Practitioner Family; Referring Provider Nurse Practitioner Family; Visit Provider Nurse Practitioner Family
DX: Z00.00 Encounter for general adult medical examination without abnormal findings (principal); F31.9 Bipolar disorder, unspecified; F32.9 Major depressive disorder, single episode, unspecified; F41.1 Generalized anxiety disorder; Z3A.22 22 weeks gestation of pregnancy
CPT/HCPCS: 36415; 80053; 82950; 84443; 85027

== ENCOUNTER → 2021-01-03 17:18 | Outpatient (CLI) | payer OTHER, MEDICAID, SELFPAY ==
[2021-01-04 12:37] LABS: Strep Grp B PCR NEG for Grp B Strep
== END ==
PROVIDERS: PCP Nurse Practitioner Family; Referring Provider Obstetrics & Gynecology; Visit Provider Obstetrics & Gynecology
DX: Z34.83 Encounter for supervision of other normal pregnancy, third trimester (principal); Z3A.36 36 weeks gestation of pregnancy
CPT/HCPCS: 87653

== ENCOUNTER → 2021-01-16 08:33 | Outpatient (CLI) | payer OTHER, MEDICAID, SELFPAY ==
[2021-01-16 11:17] LABS: COVID19 -Nasal RAPID Negative (Negative)
== END ==
PROVIDERS: PCP Nurse Practitioner Family; Visit Provider Obstetrics & Gynecology
DX: Z01.812 Encounter for preprocedural laboratory examination (principal); Z20.822 Contact with and (suspected) exposure to COVID-19
CPT/HCPCS: 87635

== ENCOUNTER 2021-01-17 09:28 | Inpatient (IN) | payer OTHER, MEDICAID, SELFPAY ==
[2021-01-17] MEDS: LACTATED RINGERS 1,000 ML 100 ML IV ×2 (10:15→15:49)
[2021-01-17] MEDS: CITRIC ACID/SODIUM CITRATE 15 ML SOLUTION 30 ML PO (10:30)
[2021-01-17 11:08] VITALS: BP 124/75
--- NOTE | 2021-01-17 11:30 | PM.HP.1 ---
History of Present Illness History of Present Illness Date Patient Seen: 01/17/21 Time Patient Seen: 11:30 Chief complaint: INPT Narrative: Patient is a 25-year-old 3 para 2 at an estimated gestational age of 39 weeks gestation who is scheduled for a repeat section. Patient History Medical History (Updated 01/03/21 @ 16:01 by Teresita Mcclendon MD) Bipolar 1 disorder (2019) Decreased serum protein level History of chlamydia History of depression History of drug abuse (05/22/15) History of self mutilation Migraine Spontaneous vaginal delivery Vaginal bleeding in Surgical History (Updated 12/05/20 @ 18:23 by Teresita Mcclendon MD) History of section, low transverse (02/10/19) History of placement of ear tubes Family & Social History Family History (Updated 06/14/20 @ 11:33 by Bridget Ramos RN) Mother Cancer Bipolar 1 disorder Depression Father No problems noted. Grandmother Heavy smoker Emphysema lung Grandfather Myocardial infarct Family estrangement Grandmother No problems noted. Grandfather Cancer Sister Drug addiction in remission Heroin addiction Social History: household members spouse,children lives independently Yes caregiver/support person No Tobacco & Substance use: Smoking Status Former smoker alcohol intake former alcohol intake frequency 0-2 drinks per day Substance Use Type marijuana Meds Home Medications and Allergies Home Medications Medication Instructions Recorded Confirmed Type docusate sodium 100 mg capsule 100 mg PO DAILY 06/14/20 01/09/21 History prenat.vits,mary,nqc-klcw-zzukc 1 tab PO DAILY 06/14/20 01/09/21 History Allergies Allergy/AdvReac Type Severity Reaction Status Date / Time No Known Drug Allergies Allergy Verified 01/17/21 11:10 Exam Vital Signs (past 8 hours): - 01/17/21 11:08 Blood Pressure 124/75 Narrative Exam Narrative: HEENT: [No thyromegaly, no anterior cervical or supraclavicular lymphadenopathy.] Lungs:[Clear to auscultation bilaterally, no wheezes.] Cardiovascular: [Regular rate and rhythm, no murmurs, rubs, or gallops]. Abdomen: [Well-healed Pfannenstiel scars. No hepatosplenomegaly. No masses palpable.] Fundal height: 39 cm Extremities: No edema Assessment & Plan Assessment & Plan narrative: Assessment: 25-year-old 3 para 2 at an estimated gestational age of 39 weeks gestation with a previous section. Plan: Repeat low-transverse section Preoperative exam and PAR-Q held in the office. COVID-19 COVID-19 status: Negative Result date/Date tested (Pos, Neg/Pending): 01/16/21 Time Spent With Patient Time with patient: less than 15 minutes
--- NOTE | 2021-01-17 11:31 | PM.PREOP ---
Pre-operative Note COVID-19 COVID-19 status: Negative Result date/Date tested (Pos, Neg/Pending): 01/16/21 Interval Note History & Physical reviewed/Exam performed by Physician: Yes Changes to H&P: No H&P completed within 30 days and has changed as indicated here:: 01/17/21
[2021-01-17] MEDS: CEFAZOLIN 2 GM/100 ML FROZ.PIGGY IV (11:44)
--- NOTE | 2021-01-17 12:01 | SUR.OPER ---
Supine on Padded OR bed, head on pillow, safety belt at thigh, arms secured on padded arm boards at <90 degrees abduction. Bump under right buttock. Legs uncrossed with pillow under knees, gel pad to heels, tape over blanket to lower legs.
--- NOTE | 2021-01-17 12:30 | SUR.OPER ---
FHT 146 LIVE MALE BORN AT 1218
[2021-01-17] MEDS: SODIUM CHLORIDE 0.9% 9 ML, TRIAMCINOLONE 10 MG INJ (12:33)
[2021-01-17 13:05] VITALS: BP 148/84; PULSE 70; RESP 16; TEMP 36.5; O2SAT 100
--- NOTE | 2021-01-17 13:09 | PM.OBCS.1 ---
Operative Date/Time/Diagnoses Date of procedure: 01/17/21 Time of procedure: 13:10 Pre-op diagnosis: Estimated gestational age of 39 weeks gestation Transverse lie Previous section Post-op diagnosis: same Procedure & Clinicians Procedure: Repeat low-transverse section Revision of scar Same procedure as scheduled: Yes Indications: Estimated gestational age of 39 weeks Transverse lie Previous section Keloid scar Surgeon: Teresita Delgado Yes if Unassisted: No Sour Bleaching Pleater: Arlette Howard Reason for Sour Bleaching Pleater: For retraction, clipping of suture, and assist with delivery of the baby Anesthesia Type: Spinal (With Duramorph) Operative Notes Findings: Live male infant in the transverse lie, back down, presentation Normal uterus, tubes, and ovaries Keloid scar Closure Type: primary Specimen(s): cord blood Intraoperative meds administered: Acetaminophen, Duramorph, Ketorolac and Pitocin Applied: Catheter Estimated Blood Loss (mL): 500 Blood products transfused: none Procedure in detail: The patient was taken to the operating room where she was placed in the seated position. Spinal anesthesia with Duramorph was administered. The patient was then placed in the dorsal supine position with a leftward tilt. She was prepped and draped in the usual sterile fashion. A timeout was performed. After spinal analgesia was found to be adequate, an elliptical incision was made around the previous incision and it was excised. The fascia was nicked in the midline, and the incision extended bilaterally with the Damian scissors. The superior aspect of the fascial incision was grasped with a Pablo clamps, elevated, and the underlying rectus muscles dissected off sharply and bluntly. Attention was then turned to the inferior aspect of this incision which in a similar fashion was grasped with a [place] clamps, elevated, and the underlying rectus muscles dissected off sharply and bluntly. The rectus muscles were in the midline. The peritoneum was identified, grasped between 2 hemostats, and entered sharply with the Metzenbaum scissors. This incision was extended superiorly and inferiorly with good visualization of the bladder. The bladder blade was inserted. The vesicouterine peritoneum was identified, grasped with the pickup, and entered sharply with the Metzenbaum scissors. This incision was extended bilaterally, and the bladder flap was created digitally. The bladder blade was reinserted. The lower uterine segment was incised in a transverse fashion with the scalpel. Upon entering the amniotic sac there was moderate amount of clear amniotic fluid. The was found to be in the transverse lie with back down. The head was brought to the incision and was delivered without difficulty. The nose and mouth were suctioned with bulb suction. The remainder of the body delivered without difficulty. The cord was double clamped and cut. The was handed off to waiting RN and RT. The placenta was delivered manually. The uterus was cleared of all clots and debris. The uterine incision was repaired with #1 chromic in a running interlocking fashion, and a second layer the same suture was used for an imbricating layer. Hemostasis was achieved. The tubes and ovaries were examined and were found to be normal. The gutters were cleared of all clots and debris. The bladder flap was reapproximated using 2-0 Vicryl in a running fashion. The parietal peritoneum was closed using 2-0 Vicryl in a running fashion. The fascia was reapproximated using 0 Vicryl in a running fashion. The subcutaneous layer was copiously irrigated with warm normal saline. 5 simple interrupted sutures of 3-0 Vicryl were placed to reapproximate the subcutaneous layer. The skin was closed with 4-0 Monocryl in a subcuticular fashion. 10 cc of a solution of 10 mg of Kenalog in 9 cc of saline were injected just under the skin along both edges of the incision. Steri-Strips were placed. An Aquacell dressing was placed. The uterus was expressed of a small amount of old blood. Sponge, lap, and instrument counts were correct x-2. The patient tolerated the procedure well, and was taken to PACU in stable condition. Complications: none [place] Baby 1: Gender: Male Presentation: breech (Transverse lie) Placental Delivery Description: Spontaneous Cord Vessel Description: 3 Vessels score (1 min): 8 score (5 min): 9 weight: 6 lb 11 oz Post-operative Condition: stable Disposition: PACU Aftercare: routine postop
[2021-01-17 13:10] VITALS: BP 158/94; PULSE 59; RESP 12; O2SAT 100
[2021-01-17 13:15] VITALS: BP 157/101; PULSE 62; RESP 14; O2SAT 98
[2021-01-17 13:20] VITALS: BP 151/90; PULSE 58; RESP 12; TEMP 36.2; O2SAT 99
--- NOTE | 2021-01-17 13:26 | SUR.PHASEI ---
Received to PACU after spinal anesthesia. Report from ZENY Scott and Dr Spangler. IV LR with 20u Pitocin infusing.
[2021-01-17 14:39] LABS: Add Manual Diff / Slide Review NO; Basophils Absolute Auto 0 /uL (0-100); Basophils Percent Auto 0.3 % (0-2); Eosinophils Absolute Auto 100 /uL (0-450); Eosinophils Percent Auto 0.7 % (2-4); Hematocrit 37.7 % (36-46); Hemoglobin 13.2 g/dL (12.0-16.0); Lymphocytes Absolute Auto 1900 /uL (1100-4500); Lymphocytes Percent Auto 18.1 % (25-40); Mean Corpuscular Volume 88.7 fL (80-100); Monocytes Absolute Auto 600 /uL (0-900); Monocytes Percent Auto 5.3 % (3-14); Neutrophils Absolute Auto 7900 /uL (1500-7000); Neutrophils Percent Auto 75.6 % (50-75); Platelet Count 143 X10^3/uL (150-400); Red Blood Cell Count 4.25 X10^6/uL (4.0-5.2); Red Cell Distribution Width 13.1 % (11.6-14.8); White Blood Cell Count 10.4 X10^3/uL (4.5-11.0)
[2021-01-17] MEDS: OXYCODONE/ACETAMINOPHEN 5/325 TABLET 1 TAB PO (15:54)
[2021-01-17] MEDS: ONDANSETRON 4 MG/2 ML INJ IV (16:13)
[2021-01-17 18:03] VITALS: BP 176/84; PULSE 55
[2021-01-17] MEDS: LABETALOL 100 MG TABLET PO (18:03)
[2021-01-17] MEDS: ACETAMINOPHEN 325 MG TABLET 650 MG PO (18:24)
[2021-01-17] MEDS: KETOROLAC 30 MG/ML VIAL IV (18:24)
[2021-01-17] MEDS: OXYCODONE IR 5 MG TABLET PO (20:00)
[2021-01-18] MEDS: ACETAMINOPHEN 325 MG TABLET 650 MG PO ×3 (00:17→12:51)
[2021-01-18] MEDS: KETOROLAC 30 MG/ML VIAL IV (00:18)
[2021-01-18] MEDS: OXYCODONE IR 5 MG TABLET PO ×3 (00:18→12:51)
[2021-01-18] MEDS: IBUPROFEN 600 MG TABLET PO ×2 (06:31→12:50)
[2021-01-18 06:45] LABS: Hematocrit 35.9 % (36-46); Hemoglobin 12.3 g/dL (12.0-16.0)
[2021-01-18 14:54] VITALS: BP 121/71; PULSE 71; RESP 16; TEMP 35.9
--- NOTE | 2021-01-20 13:30 | PM.OBDS.1 ---
Discharge Providers Provider Date of admission: 01/17/21 09:28 Discharge Date: 01/18/21 Primary care physician: BAILEY Momin Consults: 01/17/21 13:43 Consult to Sausage Inspector Routine Comment: Discharge provider: Teresita Mcclendon MD Summary Hospital Course Date Patient Seen: 01/18/21 Time Patient Seen: 07:50 Diagnoses: Estimated gestational age of 39 weeks Keloid scar Previous section Transverse lie Hospital Course: Patient is a 25-year-old 3 para 3 who presented on January 17, 2021 for a scheduled repeat section. She underwent this procedure with revision of the scar without complication. Her postoperative course was only complicated by labile blood pressures. She was started on labetalol 100 mg once a day. She was discharged home on postop day # 1. She was voiding without the catheter. was going well. Her pain was well controlled. She was tolerating a diet. She was ambulating without assistance. Peripartum Data Infant Delivery Method: Section Laceration Description: None Episiotomy description: None Procedures: Spinal anesthesia with Duramorph Scar revision Repeat low-transverse section complications: other (Labile blood pressures) 1: Gender: Male Disposition of : home Status at Discharge Cognitive/behavioral status at discharge: oriented Functional status at discharge: independent ambulation Overall status at discharge: patient is progressing back to baseline Time Spent with Patient Time attestation: Total time spent providing and/or coordinating discharge services: Time spent: Less than 30 minutes Objective Labs Result Diagrams: 01/18/21 06:03 Exam Vital Signs (past 8 hours): Oxygen Delivery Method Room Air Narrative Exam Narrative: Generally: Patient is sitting up in bed, nursing infant, no acute distress Lungs: Clear to auscultation bilaterally Cardiovascular: Regular rate and rhythm Fundus: Firm at U -1 Incision: Clean dry and intact with Aquacel dressing Extremities: Negative Homans, 1+ DTRs Discharge Plan Discharge Plan Patient Disposition: Home Provider Discharge Comment: Call with fever, chills, redness or drainage around the incision, or bleeding vaginally more than a pad in an hour Ibuprofen 600 mg every 6 hours as needed Tylenol 650 mg every 6 hours as needed Stool softener Discharge orders & Medications Prescriptions: New ibuprofen 600 mg tablet 600 mg PO Q6H PRN (Reason: pain or cramping) Qty: 30 RF: 2 oxycodone 5 mg tablet 5 mg PO Q4H PRN (Reason: pain) Qty: 20 RF: 0 Continued prenat.vits,mary,[id number]-[id number] Tablet 1 tab PO DAILY RF: 0 docusate sodium [Colace] 100 mg capsule 100 mg PO DAILY RF: 0 No Action nifedipine 30 mg tablet extended release 30 mg PO DAILY Qty: 20 RF: 0 labetalol 100 mg Tablet 200 mg PO BID Qty: 20 RF: 0 Follow up/Referrals: Teresita Mcclendon MD [Physician] - 1 Week (Please follow up with Dr. Mcclendon for an aquacel removal on January 24, at 2:45pm. In 6 weeks, please follow up with Dr. Mcclendon for a post check-up on March 04 at 2:00pm. If you have any questions or concerns, please give us a call. ) Diet/Activity/Treatments Diet: Regular Activity: No heavy lifting Skin/Wound/Dressing Care Report to your healthcare provider any signs of infection, such as:: chills, fever, increased pain, unusual drainage and unusual redness Dressing: Do not remove Visit Report/Discharge Packet Instructions: DI for , DI for Prescription Opioid Use Stand Alone Forms: Discharge: Care Discharge Data Primary Care Provider: Coleman Fisher
== END 2021-01-18 15:45 | disposition home or self-care (01) | DRG 788 ==
PROVIDERS: Admitting Provider Obstetrics & Gynecology; PCP Nurse Practitioner Family; Referring Provider Obstetrics & Gynecology; Visit Provider Obstetrics & Gynecology
PROC: 10D00Z1 Extraction of Products of Conception, Low, Open Approach (ICD-10-PCS; CPT 59514; principal; 2021-01-17 11:15)
DX: O34.211 Maternal care for low transverse scar from previous cesarean delivery (principal); Z3A.39 39 weeks gestation of pregnancy; Z37.0 Single live birth; O99.344 Other mental disorders complicating childbirth; F31.9 Bipolar disorder, unspecified; O32.2XX0 Maternal care for transverse and oblique lie, not applicable or unspecified; R09.89 Other specified symptoms and signs involving the circulatory and respiratory systems
CPT/HCPCS: 36415; 59050; 59510; 59514; 85014; 85018; 85025; 86850; 86900; 86901; J0690; J1885; J2250; J2274; J2405; J2590; J3010; J3301

== ENCOUNTER 2021-01-19 18:06 | Observation (INO) | payer OTHER, MEDICAID, SELFPAY ==
[2021-01-19 18:57] LABS: Add Manual Diff / Slide Review NO; Basophils Absolute Auto 100 /uL (0-100); Basophils Percent Auto 0.8 % (0-2); Eosinophils Absolute Auto 300 /uL (0-450); Eosinophils Percent Auto 2.9 % (2-4); Hematocrit 32.6 % (36-46); Hemoglobin 11.3 g/dL (12.0-16.0); Lymphocytes Absolute Auto 2500 /uL (1100-4500); Lymphocytes Percent Auto 25.7 % (25-40); Mean Corpuscular HGB Conc 34.5 % (30-36); Mean Corpuscular Hemoglobin 30.9 PG (26-34); Mean Corpuscular Volume 89.7 fL (80-100); Monocytes Absolute Auto 700 /uL (0-900); Monocytes Percent Auto 6.9 % (3-14); Neutrophils Absolute Auto 6300 /uL (1500-7000); Neutrophils Percent Auto 63.7 % (50-75); Platelet Count 158 X10^3/uL (150-400); Red Blood Cell Count 3.64 X10^6/uL (4.0-5.2); Red Cell Distribution Width 13.1 % (11.6-14.8); White Blood Cell Count 9.8 X10^3/uL (4.5-11.0)
[2021-01-19 19:12] LABS: Alanine Aminotransferase 17 IU/L (<35); Albumin 3.2 g/dL (3.5-5.0); Albumin Globulin Ratio 1.1 (1.0-2.8); Alkaline Phosphatase 97 U/L (38-126); Aspartate Aminotransferase 35 IU/L (14-36); BUN Creatinine Ratio 17.2 (6-22); Bilirubin Total 0.2 mg/dL (0.2-1.3); Bilirubin Unconjugated 0.3 mg/dL (0.0-1.1); Blood Urea Nitrogen 10 mg/dL (7-17); Calcium 8.8 mg/dL (8.4-10.2); Carbon Dioxide 23 mmol/L (22-32); Chloride 106 mmol/L (98-107); Estimated Glomerular Filt Rate > 60.0 mL/min (>60); Globulin 2.8 g/dL (1.7-4.1); Glucose 88 mg/dL (70-100); HEMOLYSIS 16 (0-50); Potassium 3.7 mmol/L (3.4-5.1); Sodium 135 mmol/L (137-145); Uric Acid 6.9 mg/dL (2.5-6.2)
--- NOTE | 2021-01-19 19:57 | P.HPOB_ITS ---
History of Present Illness History of Present Illness Reason for admission: other ( hypertension) Narrative: Milana Lal is a 25 year old female who underwent a repeat low-transverse section for prior section on 01/17/2021 who has been having increasing blood pressures since delivery. [facility] Medical History (Updated 01/19/21 @ 21:05 by Yris Baumann MD) Bipolar 1 disorder (2018) Decreased serum protein level History of chlamydia History of depression History of drug abuse (05/22/15) History of self mutilation Migraine Spontaneous vaginal delivery Vaginal bleeding in Surgical History (Updated 12/05/20 @ 18:23 by Teresita Mcclendon MD) History of section, low transverse (02/10/19) History of placement of ear tubes Family History (Updated 06/14/20 @ 11:33 by Bridget Ramos RN) Mother Cancer Bipolar 1 disorder Depression Father No problems noted. Grandmother Heavy smoker Emphysema lung Grandfather Myocardial infarct Family estrangement Grandmother No problems noted. Grandfather Cancer Sister Drug addiction in remission Heroin addiction Social History marital status: number of children: 2 household members: spouse and children lives independently: Yes caregiver/support person: No housing: house pets and animals: No education level: high school occupational status: unemployed (homemaker) current occupational exposures/hazards: No special carlito needs: No Smoking Status: Former smoker second hand exposure: No alcohol intake: former (Does not like alcohol. Only drank a little after age 23, none since.) substance use type: marijuana Meds Home Medications and Allergies Home Medications Medication Instructions Recorded Confirmed Type docusate sodium 100 mg capsule 100 mg PO DAILY 06/14/20 01/17/21 History prenat.vits,mary,[id number] 1 tab PO DAILY 06/14/20 01/17/21 History ibuprofen 600 mg PO Q6H PRN #30 tab 01/18/21 Rx labetalol 100 mg PO DAILY #30 tab 01/18/21 Rx oxycodone 5 mg PO Q4H PRN #20 tab 01/18/21 Rx Allergies Allergy/AdvReac Type Severity Reaction Status Date / Time No Known Drug Allergies Allergy Verified 01/17/21 11:10 Review of Systems Review of Systems Narrative: Patient is complaining of increasingly severe headache. She denies scotomata. She denies epigastric pain. She is breast-feeding without difficulty. She has been checking her blood pressures at home and despite increasing her labetalol her blood pressures have continued to increase. Patient is urinating well. She has not had a bowel movement yet. She states her lochia is mild. Exam Vital Signs (past 8 hours): Patient has had several blood pressures that were diastolics over 100. 173/102 to 148/75, pulse is in the 70s. Narrative Exam Narrative: HEENT exam within normal limits. Lungs are clear to auscultation percussion. Heart is regular rate and rhythm no S3-S4 or murmurs. Abdomen is soft, nontender. Uterus is firm, U -1, appropriately tender. Dressing is clean, dry, intact. Extremities with trace edema, and nontender. DTRs are +to with 1 beat of clonus. Objective Labs Result Diagrams: 01/19/21 18:50 01/19/21 18:50 Labs: Laboratory Results - last 24 hr 01/19/21 01/19/21 18:50 18:50 WBC 9.8 RBC 3.64 L Hgb 11.3 L Hct 32.6 L MCV 89.7 MCH 30.9 MCHC 34.5 RDW 13.1 Plt Count 158 Neut % (Auto) 63.7 Lymph % (Auto) 25.7 [place] % (Auto) 6.9 Eos % (Auto) 2.9 Baso % (Auto) 0.8 Neut # (Auto) 6300 Lymph # (Auto) 2500 [place] # (Auto) 700 Eos # (Auto) 300 Baso # (Auto) 100 Sodium 135 L Potassium 3.7 Chloride 106 Carbon Dioxide 23 BUN 10 Creatinine 0.58 Estimated GFR > 60.0 BUN/Creatinine Ratio 17.2 Glucose 88 Uric Acid 6.9 H Calcium 8.8 Total Bilirubin 0.2 Conjugated Bilirubin 0.0 Unconjugated Bilirubin 0.3 AST 35 ALT 17 Alkaline Phosphatase 97 Total Protein 6.0 L Albumin 3.2 L Globulin 2.8 Albumin/Globulin Ratio 1.1 Assessment & Plan Assessment and plan (1) Hypertension, condition or complication: Status: Acute Assessment & Plan narrative: Patient with labile blood pressures with complaints of increasing headache. Admitted for blood pressure control and monitoring for preeclampsia.
[2021-01-19 20:27] VITALS: BP 142/94; PULSE 77
[2021-01-19] MEDS: LABETALOL 100 MG TABLET 200 MG PO (20:27)
[2021-01-20] MEDS: ACETAMINOPHEN 325 MG TABLET 650 MG PO ×2 (02:10→08:35)
[2021-01-20] MEDS: OXYCODONE IR 5 MG TABLET PO ×3 (02:11→10:35)
[2021-01-20] MEDS: IBUPROFEN 600 MG TABLET PO ×2 (02:11→08:36)
[2021-01-20 05:21] LABS: Add Manual Diff / Slide Review NO; Basophils Absolute Auto 0 /uL (0-100); Basophils Percent Auto 0.5 % (0-2); Eosinophils Absolute Auto 200 /uL (0-450); Eosinophils Percent Auto 3.2 % (2-4); Hematocrit 32.2 % (36-46); Hemoglobin 11.2 g/dL (12.0-16.0); Lymphocytes Absolute Auto 2300 /uL (1100-4500); Lymphocytes Percent Auto 30.4 % (25-40); Mean Corpuscular HGB Conc 34.9 % (30-36); Mean Corpuscular Hemoglobin 31.3 PG (26-34); Mean Corpuscular Volume 89.9 fL (80-100); Monocytes Absolute Auto 500 /uL (0-900); Monocytes Percent Auto 6.4 % (3-14); Neutrophils Absolute Auto 4400 /uL (1500-7000); Neutrophils Percent Auto 59.5 % (50-75); Platelet Count 150 X10^3/uL (150-400); Red Blood Cell Count 3.58 X10^6/uL (4.0-5.2); Red Cell Distribution Width 13.1 % (11.6-14.8); White Blood Cell Count 7.5 X10^3/uL (4.5-11.0)
[2021-01-20 05:28] LABS: Alanine Aminotransferase 22 IU/L (<35); Albumin 3.2 g/dL (3.5-5.0); Albumin Globulin Ratio 1.3 (1.0-2.8); Alkaline Phosphatase 93 U/L (38-126); Aspartate Aminotransferase 39 IU/L (14-36); Bilirubin Total 0.2 mg/dL (0.2-1.3); Bilirubin Unconjugated 0.2 mg/dL (0.0-1.1); Globulin 2.5 g/dL (1.7-4.1); HEMOLYSIS < 15 (0-50); Total Protein 5.7 g/dL (6.3-8.2)
[2021-01-20] MEDS: DOCUSATE 100 MG CAPSULE PO (08:34)
[2021-01-20 08:35] VITALS: BP 154/92; PULSE 74
[2021-01-20] MEDS: NIFEdipine 10 MG CAPSULE PO (08:35)
[2021-01-20] MEDS: LABETALOL 100 MG TABLET 200 MG PO (08:35)
--- NOTE | 2021-01-20 10:25 | PM.DS.1 ---
History of Present Illness History of Present Illness Date Patient Seen: 01/20/21 Time Patient Seen: 10:25 Chief complaint: OBSERVATION FOR BLOOD PRESSURE Narrative: Patient was admitted for control hypertension, mild preeclampsia. Discharge Providers Provider Date of admission: 01/19/21 18:06 Discharge Date: 01/20/21 Primary care physician: BAILEY Momin Discharge provider: Yris Baumann MD Summary Hospital Course Discharge Diagnosis: hypertension, mild preeclampsia Hospital Course: Patient arrived on Labor and delivery with significant labile blood pressures, mild headache, increased DTRs. Patient's blood pressures have improved on increasing labetalol and addition of nifedipine. Patient only has a mild headache but no scotomata, epigastric pain. Patient's DTRs have decreased. Patient's PIH labs have remained stable. Status at Discharge Cognitive/behavioral status at discharge: oriented Functional status at discharge: independent ambulation Overall status at discharge: patient is progressing back to baseline Time Spent with Patient Time spent: Less than 30 minutes Exam Vital Signs (past 8 hours): BP 124/71-post nifedipine 01/20/21 08:35 Pulse Rate 74 Blood Pressure 154/92 H Narrative Exam Narrative: HEENT exam within normal limits. No right upper quadrant pain. Minimal edema and extremities nontender. DTRs are normal. Objective Labs Result Diagrams: 01/20/21 05:00 01/19/21 18:50 Labs: Laboratory Results - last 24 hr 01/19/21 01/19/21 01/20/21 18:50 18:50 05:00 WBC 9.8 7.5 RBC 3.64 L 3.58 L Hgb 11.3 L 11.2 L Hct 32.6 L 32.2 L MCV 89.7 89.9 MCH 30.9 31.3 MCHC 34.5 34.9 RDW 13.1 13.1 Plt Count 158 150 Neut % (Auto) 63.7 59.5 Lymph % (Auto) 25.7 30.4 [place] % (Auto) 6.9 6.4 Eos % (Auto) 2.9 3.2 Baso % (Auto) 0.8 0.5 Neut # (Auto) 6300 4400 Lymph # (Auto) 2500 2300 [place] # (Auto) 700 500 Eos # (Auto) 300 200 Baso # (Auto) 100 0 Sodium 135 L Potassium 3.7 Chloride 106 Carbon Dioxide 23 BUN 10 Creatinine 0.58 Estimated GFR > 60.0 BUN/Creatinine Ratio 17.2 Glucose 88 Uric Acid 6.9 H Calcium 8.8 Total Bilirubin 0.2 Conjugated Bilirubin 0.0 Unconjugated Bilirubin 0.3 AST 35 ALT 17 Alkaline Phosphatase 97 Total Protein 6.0 L Albumin 3.2 L Globulin 2.8 Albumin/Globulin Ratio 1.1 01/20/21 05:00 WBC RBC Hgb Hct MCV MCH MCHC RDW Plt Count Neut % (Auto) Lymph % (Auto) [place] % (Auto) Eos % (Auto) Baso % (Auto) Neut # (Auto) Lymph # (Auto) [place] # (Auto) Eos # (Auto) Baso # (Auto) Sodium Potassium Chloride Carbon Dioxide BUN Creatinine Estimated GFR BUN/Creatinine Ratio Glucose Uric Acid Calcium Total Bilirubin 0.2 Conjugated Bilirubin 0.0 Unconjugated Bilirubin 0.2 AST 39 H ALT 22 Alkaline Phosphatase 93 Total Protein 5.7 L Albumin 3.2 L Globulin 2.5 Albumin/Globulin Ratio 1.3 PFSH Medical History (Updated 01/19/21 @ 21:05 by Yris Baumann MD) Bipolar 1 disorder (2018) Decreased serum protein level History of chlamydia History of depression History of drug abuse (05/22/15) History of self mutilation Migraine Spontaneous vaginal delivery Vaginal bleeding in Surgical History (Updated 12/05/20 @ 18:23 by Teresita Mcclendon MD) History of section, low transverse (02/10/19) History of placement of ear tubes Family History (Updated 06/14/20 @ 11:33 by Bridget Ramos RN) Mother Cancer Bipolar 1 disorder Depression Father No problems noted. Grandmother Heavy smoker Emphysema lung Grandfather Myocardial infarct Family estrangement Grandmother No problems noted. Grandfather Cancer Sister Drug addiction in remission Heroin addiction Social History marital status: number of children: 2 household members: spouse and children lives independently: Yes caregiver/support person: No housing: house pets and animals: No education level: high school occupational status: unemployed (homemaker) current occupational exposures/hazards: No special carlito needs: No Smoking Status: Former smoker second hand exposure: No alcohol intake: former (Does not like alcohol. Only drank a little after age 23, none since.) substance use type: marijuana Discharge Assessment & Plan Assessment and Plan Assessment: labile hypertension likely mild preeclampsia improving. Plan of Treatment: Patient will be discharged home on labetalol 200 mg b.i.d. and 30 mg extended release nifedipine. Preeclampsia precautions reviewed with the patient. Patient has an appointment with Dr. Mcclendon in 5 days. Discharge Plan Discharge Plan Patient Disposition: Home Discharge orders & Medications Prescriptions: New nifedipine 30 mg tablet extended release 30 mg PO DAILY Qty: 20 RF: 0 labetalol 100 mg Tablet 200 mg PO BID Qty: 20 RF: 0 Continued prenat.vits,mary,[id number] Tablet 1 tab PO DAILY RF: 0 docusate sodium [Colace] 100 mg capsule 100 mg PO DAILY RF: 0 ibuprofen 600 mg tablet 600 mg PO Q6H PRN (Reason: pain or cramping) Qty: 30 RF: 2 oxycodone 5 mg tablet 5 mg PO Q4H PRN (Reason: pain) Qty: 20 RF: 0 Discontinued labetalol 100 mg tablet 100 mg PO DAILY Qty: 30 RF: 0 Follow up/Referrals: Coleman Fisher ARNP [Primary Care Provider] - Teresita Mcclendon MD [Physician] - As previously scheduled Discharge Health Status Health Concerns: Call immediately if severe headache, scotomata, epigastric pain. Diet/Activity/Treatments Diet: Regular Discharge Data Primary Care Provider: Coleman Fisher Attending Provider: Yris Baumann
[2021-01-20] MEDS: NIFEdipine 30 MG TAB ER PO (10:35)
--- NOTE | 2021-01-20 10:48 | PC.NURSE ---
all charting done in [facility] vital signs
--- NOTE | 2021-01-20 11:00 | PC.NURSE ---
[address] dee prescriptions given and patient sent home
== END 2021-01-20 11:00 | disposition home or self-care (01) ==
PROVIDERS: Admitting Provider Specialist; PCP Nurse Practitioner Family; Referring Provider Specialist; Visit Provider Specialist
DX: O16.5 Unspecified maternal hypertension, complicating the puerperium (principal); O14.05 Mild to moderate pre-eclampsia, complicating the puerperium
CPT/HCPCS: 36415; 80053; 80076; 84550; 85025; 99219; G0378; G0379

== ENCOUNTER → 2021-03-22 10:48 | Outpatient (CLI) | payer OTHER, MEDICAID, SELFPAY ==
--- NOTE | 2021-03-22 10:50 | DI.US.S_ITS ---
PROCEDURE: US THYROID INDICATIONS: LATERAL RIGHT NECK LUMP TECHNIQUE: Real-time scanning was performed of the thyroid gland, with image documentation. COMPARISON: [facility], CR, XR NECK SOFT TISSUE, 05/24/2017, 17:25. FINDINGS: Right: Thyroid lobe measures 5.0 x 1.3 x 1.6 cm, and is homogeneous in echotexture. There are 2 right lateral neck lymph nodes present with the largest measuring up to 1.2 cm in maximal diameter Left: Thyroid lobe measures 4.8 x 1.1 x 1.2 cm, and is homogenous in echotexture. Isthmus: 2.7 mm thick. Nodule number: 1 Location: Right mid Size: 0.5 x 0.4 x 0.6 cm. Composition: Solid Echogenicity: Hypoechoic Shape: wider than tall. Margins: Smooth Echogenic foci: Internal punctate echogenic foci Total points: 7 ACR TI-RADS category: Mildly suspicious IMPRESSION: 1. Subcentimeter right thyroid nodule. Recommend continued followup ultrasound as detailed below. 2. Right neck lymph nodes with the largest measuring up to 1.2 cm. Although the nodes may be reactive, neoplastic lymphadenopathy cannot be excluded and close clinical correlation and follow-up to resolution is recommended. ACR TI-RADS definitions and recommendations: TI-RADS 1 (benign): 0 points. FNA not needed. TI-RADS 2 (not suspicious): 2 points. FNA not needed. TI-RADS 3 (mildly suspicious): 3 points. * FNA if 2.5 cm or larger, follow up if 1.5 cm or larger (at 1, 3, and 5 years). TI-RADS 4 (moderately suspicious): 4-6 points. * FNA if 1.5 cm or larger, follow up if 1 cm or larger (at 1, 2, 3, and 5 years). TI-RADS 5 (highly suspicious): 7 points or more. * FNA if 1 cm or larger, follow up if 0.5 cm or larger (every year for 5 years). Dictated by: Nemesio HENDRIX Interpreted: Nehemias Ackerman MD on 03/22/2021 at 11:53 Transcribed by: RAFITA on 03/22/2021 at 11:56 Approved by: Nehemias Ackerman M.D. on 03/22/2021 at 11:58
[2021-03-22 12:31] LABS: Albumin 4.1 g/dL (3.5-5.0); Total Protein 6.8 g/dL (6.3-8.2)
[2021-03-22 12:48] LABS: Free T4, Direct Thyroxine 0.88 ng/dL (0.78-2.19)
[2021-03-22 13:02] LABS: Thyroid Stimulating Hormone 0.633 uIU/mL (0.47-4.68)
== END ==
PROVIDERS: PCP Nurse Practitioner Family; Referring Provider Obstetrics & Gynecology; Visit Provider Obstetrics & Gynecology
DX: E04.1 Nontoxic single thyroid nodule (principal); R59.0 Localized enlarged lymph nodes; E88.09 Other disorders of plasma-protein metabolism, not elsewhere classified
CPT/HCPCS: 36415; 76536; 82040; 84155; 84439; 84443

== ENCOUNTER → 2021-07-17 15:10 | Outpatient (CLI) | payer OTHER, MEDICAID, SELFPAY ==
--- NOTE | 2021-07-17 15:12 | DI.US.S_ITS ---
PROCEDURE: US SOFT TISSUE HEAD AND NECK INDICATIONS: LUMP RIGHT POSTERIOR CERVICAL NECK TECHNIQUE: Real-time scanning was performed of the neck region of interest, with image documentation. COMPARISON: Reference is made to thyroid ultrasound dated March 22, 2020. FINDINGS: 2 hypoechoic , ovoid lesions are seen in the right neck soft tissues, which appear to demonstrate fatty janie. Lesion 1: 2.8 x 2.7 x 1.2 (previously 3.4 x 2.3 x 1.1 cm) Lesion 2: 1.6 x 1.5 x 0.7 cm (previously 1.4 x 1.4 x 0.6 cm) IMPRESSION: Bilateral ovoid lesions as detailed above, likely reflecting lymph nodes. Dictated by: Kodak Goff M.D. on 07/17/2021 at 16:52 Approved by: Kodak Goff M.D. on 07/17/2021 at 16:53
== END ==
PROVIDERS: PCP Nurse Practitioner Family; Referring Provider Specialist; Visit Provider Specialist
DX: L04.0 Acute lymphadenitis of face, head and neck (principal)
CPT/HCPCS: 76536

== ENCOUNTER → 2021-08-15 13:06 | Outpatient (CLI) | payer OTHER, MEDICAID, SELFPAY ==
--- NOTE | 2021-08-15 | PATH_ITS ---
[facility] Accession Number: [id number] . 01 Material submitted: . lymph node - RIGHT POST/LATERAL NECK ENLARGED LYMPH NODE . 01 Diagnosis: Right Posterior/Lateral Neck Lymph Node, Core Biopsies: Small fragments of lymphoid tissue without diagnostic abnormalities. Negative for granulomatous or suppurative inflammation. Negative for malignancy, see microscopic description. [facility]V 08/23/2021 1708 Local . 01 Electronically signed: . Bereket Coto MD, Pathologist NPI- [id number] . 01 Gross description: . The specimen is received in formalin labeled lymph node biopsy and consists of two morocho cores of soft tissue measuring 0.4 and 0.9 cm in length x 0.1 cm in diameter. The specimen is entirely submitted in cassette A1. ([id number]) /[facility] 08/16/2021 1806 Local . 01 Microscopic: . Examination of the nadira architecture is limited due to the nature of the specimen (core biopsy). However, on the submitted fragments, no apparent atypical lymphocyte population is identified. A few lymphoid follicles are seen and the interfollicular spaces show normal composition of small lymphocytes, mixed T and B cell type. Significant proportion of large lymphocytes is not noted. Hodgkin or Hodgkin-like cells are not identified. There is no evidence of granulomatous or suppurative inflammation. . To better evaluate the lymphocyte composition in this specimen, a panel of immunostains is performed with the following results: . CD3: T lymphocytes positive. CD20: B lymphocytes positive. BCL2: T lymphocytes positive (negative follicles). BCL6: Few lymphocytes within the follicles weakly positive. Proliferation marker Ki-67: Low, 2-3%. CD21: Follicular dendritic meshwork positive. Cyclin D1: Negative for aberrant coexpression on the B lymphocytes. CD30: Negative for Hodgkin cells. Negative for activated lymphocytes. CD15: Negative for Hodgkin cells. Rare small granulocytes staining. . Overall, based on morphology and immunohistochemistry, in this core biopsy, there is no evidence of malignancy. However, if suspicious for malignancy (hematopoeitic/nonhematopoeitic-type), excision of the lymph node is suggested, if clinically indicated, as neoplastic processes can partially involve a lymph node. . * This test was developed and its performance characteristics determined by [facility]. It has not been cleared or approved by the U.S. Food and Drug Administration. The FDA has determined that such clearance or approval is not necessary. This test is used for clinical purposes. It should not be regarded as investigational or for research. . 01 Pathologist provided ICD-10: R59.0 . 01 CPT . 722859, E60226, O28671 Performed at: 01 [facility] [address] [place] [address] [address], [place], [place] [id number] MD Dimitris Ponce MD Phone: [phone]
--- NOTE | 2021-08-15 13:07 | DI.US.S_ITS ---
PROCEDURE: US BIOPSY LYMPH NODE INDICATIONS: ENLARGED RIGHT POSTERIOR NECK LYMPH NODE TECHNIQUE: The indications, alternatives, benefits, risks, and complications of the procedure were explained to the patient. Written informed consent was obtained and placed in the chart. Real-time sonography was utilized to choose the site for percutaneous lymph node sampling. The skin was prepped and draped in the usual sterile fashion. 1% lidocaine was infiltrated down to the site of interest. A coaxial needle was then advanced into the site of interest under direct sonographic visualization. A biopsy apparatus was then utilized, and core biopsies were obtained. The needle was then withdrawn; a bandage was applied to the biopsy site. COMPARISON: None. FINDINGS: Biopsy site(s): Right superior posterolateral neck Needle: Abcodia biopsy needle set. Number of passes: 2 Medications: 1% lidocaine for local anaesthesia. Complications: None. IMPRESSION: Successful ultrasound-guided right neck lymph node biopsy, with pathology results pending. Dictated by: Cruzito Ramirez M.D. on 08/16/2021 at 9:04 Approved by: Cruzito Ramirez M.D. on 08/16/2021 at 9:05
== END ==
PROVIDERS: PCP Nurse Practitioner Family; Referring Provider Specialist; Visit Provider Specialist
DX: L04.0 Acute lymphadenitis of face, head and neck (principal)
CPT/HCPCS: 38505; 76942

== ENCOUNTER 2021-10-09 13:37 | Emergency (ER) | payer OTHER, MEDICAID, SELFPAY ==
--- NOTE | 2021-10-09 13:53 | PC.NURSE ---
Pt told registration that a previous nurse she spoke to did not get along and requested a new nurse to speak to. I went out to the lobby to find pt to triage and there was no answer from the lobby or the parking lot
[2021-10-09 14:07] VITALS: BP 131/89; PULSE 94; RESP 20; TEMP 36.6; O2SAT 100; BMI 21.5
[2021-10-09 16:32] LABS: Amorphous Sediment Urine 1+; Bacteria Urine Few (2-10); Mucus Urine 2+ (Negative); RBC Urine None Seen (0-5/HPF); Squamous Epithelial Cell Urine 1-5 /HPF (0-5/HPF); WBC Urine 1-5/HPF (0-5/HPF)
[2021-10-09 16:33] LABS: Culture Indicated Urine Specimen Cultured
--- NOTE | 2021-10-09 17:04 | ED.URI ---
HPI - URI/Sore Throat <BAILEY Reis - Last Filed: 10/09/21 17:16> General Chief Complaint: Fever Stated Complaint: Weight loss, SOB post covid Time Seen by Provider: 10/09/21 15:32 Source: patient Mode of arrival: Ambulatory History of Present Illness HPI Narrative: 26 year old female presents to the Emergency department complaining of fatigue, cough, and 8 lb weight loss since being diagnosed with COVID a days ago. Patient is emotional, reports she has had a headache which is her worst symptom, she denies having any fever, nausea or vomiting or diarrhea, she reports that she has a mom of 3 kids and does not get a break, she is overwhelmed with fatigue. She endorses that she had ibuprofen this morning and it helps with her muscle aches. Patient denies any abdominal pain, dysuria, shortness of breath, wheezing Related Data Previous Rx's Medication Instructions Recorded citalopram 20 mg tablet 20 mg PO DAILY #30 tab 01/30/21 Allergies Allergy/AdvReac Type Severity Reaction Status Date / Time No Known Drug Allergies Allergy Verified 10/09/21 14:07 Review of Systems <BAILEY Reis - Last Filed: 10/09/21 17:16> Review of Systems Narrative: General: denies fever, chills, complains of fatigue Head/Neck: denies headache, neck pain Eyes: denies visual changes, eye pain Cardio: denies chest pain, palpitations Respiratory: denies shortness of breath, + cough GI: denies abdominal pain, nausea, vomiting, or diarrhea : denies dysuria, hematuria MSK: denies joint pain, muscle weakness Skin: denies rash, itching Neuro: denies numbness, tingling Patient History <BAILEY Reis - Last Filed: 10/09/21 17:16> Medical History Bipolar 1 disorder (2019) Decreased serum protein level History of chlamydia History of depression History of drug abuse (05/22/15) History of self mutilation Migraine Spontaneous vaginal delivery Vaginal bleeding in Surgical History History of section, low transverse (02/10/19) History of placement of ear tubes Family History Mother Cancer Bipolar 1 disorder Depression Father No problems noted. Grandmother Heavy smoker Emphysema lung Grandfather Myocardial infarct Family estrangement Grandmother No problems noted. Grandfather Cancer Sister Drug addiction in remission Heroin addiction Social History marital status: number of children: 2 household members: spouse and children lives independently: Yes caregiver/support person: No housing: house pets and animals: No education level: high school occupational status: unemployed (homemaker) current occupational exposures/hazards: No special carlito needs: No Smoking Status: Former smoker second hand exposure: No alcohol intake: former (Does not like alcohol. Only drank a little after age 23, none since.) substance use type: marijuana Smoking Status: Former smoker alcohol intake frequency: 0-2 drinks per day Substance Use Type: marijuana Exam <BAILEY Reis - Last Filed: 10/09/21 17:16> Narrative Exam Narrative: Independently reviewed vitals signs and nursing notes. General: Awake, alert, nontoxic, no cardiorespiratory distress Head/Neck: Atraumatic, neck full range of motion Eyes: EOMI, conjunctiva normal Nose: nares patent, no rhinorrhea Mouth/Throat: moist mucus membranes, Cardio: Regular rate and rhythm, no peripheral edema Respiratory: respirations unlabored without wheezing, stridor, or rales. No retractions. GI: Abdomen soft, nontender MSK: Moves all extremities, neurovascularly intact Skin: Normal capillary refill, no rash extremities are warm and well perfused Neuro: Normal speech and cognition, normal gait Initial Vital Signs Initial Vital Signs: Vital Signs Temperature 97.9 F 10/09/21 14:07 Pulse Rate 94 H 10/09/21 14:07 Respiratory Rate 20 10/09/21 14:07 Blood Pressure 131/89 10/09/21 14:07 Pulse Oximetry 100 10/09/21 14:07 <Sabas Serrato MD - Last Filed: 10/14/21 12:26> Initial Vital Signs Initial Vital Signs: Vital Signs Temperature 97.9 F 10/09/21 14:07 Pulse Rate 94 H 10/09/21 14:07 Respiratory Rate 20 10/09/21 14:07 Blood Pressure 131/89 10/09/21 14:07 Pulse Oximetry 100 10/09/21 14:07 Course <BAILEY Reis - Last Filed: 10/09/21 17:16> Orders Ordered: ED Orders 10/09/21 14:30 Urine Culture Stat Urine Microscopic Stat 10/09/21 15:32 COVID19 -Nasal swab/Pre-Proc Stat Vital Signs Vital signs: Vital Signs - 8 hr 10/09/21 14:07 Temperature 97.9 F Pulse Rate 94 H Respiratory Rate 20 Blood Pressure 131/89 Pulse Oximetry 100 <Sabas Serrato MD - Last Filed: 10/14/21 12:26> Orders Ordered: ED Orders 10/09/21 14:30 Urine Culture Stat Urine Microscopic Stat 10/09/21 15:32 COVID19 -Nasal swab/Pre-Proc Stat Vital Signs Vital signs: Vital Signs - 8 hr 10/09/21 14:07 Temperature 97.9 F Pulse Rate 94 H Respiratory Rate 20 Blood Pressure 131/89 Pulse Oximetry 100 MDM - URI/Sore Throat <BAILEY Reis - Last Filed: 10/09/21 17:16> Lab Data Labs: Lab Results 10/09/21 Range/Units 14:30 Urine RBC None seen (0-5/HPF) Urine WBC 1-5/hpf (0-5/HPF) Ur Squamous Epith Cells 1-5 /hpf D (0-5/HPF) Amorphous Sediment 1+ Urine Bacteria Few (2-10) H (None) Urine Mucus 2+ H (Negative) Ur Culture Indicated? Specimen cultured Point of Care Testing Test Results Negative Urine Dip Bedside Urine Glucose Negative Bedside Urine Bilirubin - Negative Bedside Urine Ketone - Negative Urine Specific [place] 1.030 Bedside Urine Occult Blood - Negative Bedside Urine pH 6.0 Bedside Urine Protein + 30 Bedside Urine Urobilinogen - Negative Bedside Urine Nitrite - Negative Bedside Urine Leukocytes - Negative Esterase MDM Narrative Medical decision making narrative: 26-year-old female presents to the emergency department complaining of fatigue, headache, congestion and cough since being diagnosed with COVID a days ago. Patient reports that she has a mom of 3 and is overwhelmed. She was requesting IV fluids but denies any nausea vomiting. Patient endorses that she took ibuprofen this morning so when we were discussing a plan for for her headache, we discussed ibuprofen, Benadryl, and p.o. hydration. Patient became upset and said that she could do all these things at home, she thought she would at least get some IV fluid if she came back to a room. Patient then denies wanting to have these treatments and requests to leave against medical advice. I believe she is of sound decision making capacity, her vitals were within normal limits, she did not have any hypoxia or shortness of breath while waiting. She does not appear dehydrated or toxic. Encouraged p.o. hydration, supportive care measures, and a support system. Patient is appropriate and amenable to discharge home. Vital signs are stable on repeat examination is unremarkable. Patient has been given strict return to ER precautions for any new or worsening symptoms. Patient understands to follow up closely with outpatient providers as instructed. Patient understands plan and wishes to leave against medical advice. All questions and concerns answered at this time. <Sabas Serrato MD - Last Filed: 10/14/21 12:26> Lab Data Labs: Lab Results 10/09/21 Range/Units 14:30 Urine RBC None seen (0-5/HPF) Urine WBC 1-5/hpf (0-5/HPF) Ur Squamous Epith Cells 1-5 /hpf D (0-5/HPF) Amorphous Sediment 1+ Urine Bacteria Few (2-10) H (None) Urine Mucus 2+ H (Negative) Ur Culture Indicated? Specimen cultured Point of Care Testing Test Results Negative Urine Dip Bedside Urine Glucose Negative Bedside Urine Bilirubin - Negative Bedside Urine Ketone - Negative Urine Specific [place] 1.030 Bedside Urine Occult Blood - Negative Bedside Urine pH 6.0 Bedside Urine Protein + 30 Bedside Urine Urobilinogen - Negative Bedside Urine Nitrite - Negative Bedside Urine Leukocytes - Negative Esterase Discharge Plan Departure Patient Disposition: Left Against Medical Advice Clinical Impression: COVID-19 Instructions: DI for Fever (Symptom) -- Adult Prescriptions: No Action citalopram 20 mg tablet 20 mg PO DAILY Qty: 30 6RF Referrals: Coleman Fisher ARNP [Primary Care Provider] - Stand Alone Forms: Against Medical Advice <Sabas Serrato MD - Last Filed: 10/14/21 12:26> Cosign ED Attending Cosignature Attestation: I was immediately available in the department for consultation. This documentation has been reviewed and I agree with assessment and plan. Supervised by Sabas Serrato MD
== END 2021-10-09 17:14 | disposition left against medical advice (07) ==
PROVIDERS: Emergency Medicine; Emergency Provider Nurse Practitioner Critical Care Medicine; PCP Nurse Practitioner Family
DX: U07.1 COVID-19 (principal); Z53.29 Procedure and treatment not carried out because of patient's decision for other reasons
CPT/HCPCS: 81003; 81015; 81025; 87086; 99282

== ENCOUNTER → 2021-12-06 09:31 | Outpatient (CLI) | payer OTHER, MEDICAID, SELFPAY ==
[2021-12-06 10:22] LABS: Add Manual Diff / Slide Review NO; Basophils Absolute Auto 0 /uL (0-100); Basophils Percent Auto 0.8 % (0-2); Eosinophils Absolute Auto 200 /uL (0-450); Hematocrit 39.8 % (36-46); Hemoglobin 13.4 g/dL (12.0-16.0); Lymphocytes Absolute Auto 2300 /uL (1100-4500); Lymphocytes Percent Auto 41.2 % (25-40); Mean Corpuscular HGB Conc 33.7 % (30-36); Mean Corpuscular Hemoglobin 28.6 PG (26-34); Mean Corpuscular Volume 84.8 fL (80-100); Monocytes Absolute Auto 400 /uL (0-900); Monocytes Percent Auto 7.7 % (3-14); Neutrophils Absolute Auto 2600 /uL (1500-7000); Neutrophils Percent Auto 47.3 % (50-75); Platelet Count 180 X10^3/uL (150-400); Red Blood Cell Count 4.69 X10^6/uL (4.0-5.2); Red Cell Distribution Width 15.3 % (11.6-14.8); White Blood Cell Count 5.5 X10^3/uL (4.5-11.0)
[2021-12-06 10:39] LABS: Appearance Urine UA CLEAR; Bilirubin Urine UA NEGATIVE (NEGATIVE); Color Urine UA YELLOW; Glucose Urine UA NEGATIVE (Negative); Ketones Urine UA NEGATIVE (NEGATIVE); Leukocyte Esterase Urine UA NEGATIVE (NEGATIVE); Nitrite Urine UA NEGATIVE (Negative); Occult Blood Urine UA NEGATIVE (Negative); Protein Urine UA NEGATIVE (Negative); Urobilinogen Urine UA 0.2 E.U./dL (0.2)
[2021-12-06 10:41] LABS: pH Urine UA 5.5 (4.5-8.0)
[2021-12-06 10:43] LABS: Pregnancy Test Urine Negative (Negative)
[2021-12-06 11:00] LABS: RBC Urine None Seen (0-5/HPF); Squamous Epithelial Cell Urine 5-10 /HPF (0-5/HPF); WBC Urine None Seen (0-5/HPF)
[2021-12-06 11:01] LABS: Bacteria Urine Moderate (10-30); Culture Indicated Urine Cult Not Indicated
[2021-12-06 11:24] LABS: HEMOLYSIS < 15 (0-50); Iron 43 ug/dL (37-170)
[2021-12-06 11:26] LABS: Alanine Aminotransferase 13 IU/L (<35); Albumin 4.5 g/dL (3.5-5.0); Albumin Globulin Ratio 1.8 (1.0-2.8); Alkaline Phosphatase 57 U/L (38-126); Aspartate Aminotransferase 21 IU/L (14-36); BUN Creatinine Ratio 12.3 (6-22); Bilirubin Total 0.4 mg/dL (0.2-1.3); Blood Urea Nitrogen 10 mg/dL (7-17); Calcium 9.2 mg/dL (8.4-10.2); Carbon Dioxide 27 mmol/L (22-32); Chloride 111 mmol/L (98-107); Estimated Glomerular Filt Rate > 60.0 mL/min (>60); Globulin 2.5 g/dL (1.7-4.1); Glucose 83 mg/dL (70-100); HEMOLYSIS < 15 (0-50); Sodium 142 mmol/L (137-145)
[2021-12-06 11:54] LABS: TSH w/ Reflex to FT4 1.84 uIU/mL (0.47-4.68)
[2021-12-06 11:56] LABS: Ferritin 12 ng/mL (6-137)
[2021-12-06 12:28] LABS: Folate 7.8 ng/mL (2.76-20.0); Vitamin B12 874 pg/mL (239-931)
[2021-12-06 12:54] LABS: Percent Iron Saturation 15 % (15-50); Total Iron Binding Capacity 285 ug/dL (265-497); Transferrin 208 mg/dL (206-381)
[2021-12-09 13:09] LABS: Lamotrigine Lamictal 10.4 ug/mL (2.0-20.0)
== END ==
PROVIDERS: PCP Nurse Practitioner Family; Referring Provider Nurse Practitioner Family; Visit Provider Nurse Practitioner Family
DX: Z00.00 Encounter for general adult medical examination without abnormal findings (principal); R68.89 Other general symptoms and signs; R41.89 Other symptoms and signs involving cognitive functions and awareness; R26.89 Other abnormalities of gait and mobility; F31.9 Bipolar disorder, unspecified
CPT/HCPCS: 36415; 80053; 80175; 81001; 81025; 82607; 82728; 82746; 83540; 83550; 84443; 85025

== ENCOUNTER → 2022-02-09 11:10 | Outpatient (CLI) | payer OTHER, MEDICAID, SELFPAY | PROVIDERS: PCP Nurse Practitioner Family; Visit Provider Nurse Practitioner Critical Care Medicine | DX: J02.9 Acute pharyngitis, unspecified (principal) | CPT/HCPCS: 87070; 87077; 87147 ==

== ENCOUNTER → 2022-02-19 09:38 | Outpatient (CLI) | payer OTHER, MEDICAID, SELFPAY ==
[2022-02-19 11:15] LABS: Urine N gonorrhoeae NOT DETECTED
[2022-02-19 11:16] LABS: Urine Chlamydia NOT DETECTED
== END ==
PROVIDERS: PCP Nurse Practitioner Family; Visit Provider Physician Assistant
DX: N89.8 Other specified noninflammatory disorders of vagina (principal); Z13.9 Encounter for screening, unspecified
CPT/HCPCS: 87210; 87491; 87591

== ENCOUNTER → 2022-05-21 08:12 | Outpatient (CLI) | payer OTHER, MEDICAID, SELFPAY ==
[2022-05-21 09:01] LABS: Pregnancy Test Urine Negative (Negative)
[2022-05-21 10:20] LABS: Urine N gonorrhoeae NOT DETECTED
[2022-05-21 10:21] LABS: Urine Chlamydia NOT DETECTED
== END ==
PROVIDERS: PCP Nurse Practitioner Family; Visit Provider Nurse Practitioner Family
DX: Z11.3 Encounter for screening for infections with a predominantly sexual mode of transmission (principal); R30.0 Dysuria; N89.8 Other specified noninflammatory disorders of vagina
CPT/HCPCS: 81025; 87086; 87210; 87491; 87591

== ENCOUNTER → 2022-07-05 15:49 | Outpatient (CLI) | payer OTHER, MEDICAID, SELFPAY ==
[2022-07-05 19:03] LABS: Urine N gonorrhoeae NOT DETECTED
[2022-07-05 19:04] LABS: Urine Chlamydia NOT DETECTED
== END ==
PROVIDERS: PCP Nurse Practitioner Family; Visit Provider Nurse Practitioner Family
DX: N89.8 Other specified noninflammatory disorders of vagina (principal)
CPT/HCPCS: 87086; 87210; 87491; 87591

== ENCOUNTER 2022-08-31 18:31 | Emergency (ER) | payer OTHER, MEDICAID, SELFPAY ==
[2022-08-31 19:27] VITALS: BP 115/82; PULSE 91; RESP 16; TEMP 36.3; O2SAT 99; BMI 18.3
[2022-08-31] MEDS: ONDANSETRON 4 MG ODT SL (19:40)
== END 2022-08-31 19:42 | disposition left against medical advice (07) ==
PROVIDERS: Emergency Provider Emergency Medicine; PCP Nurse Practitioner Family
DX: U07.1 COVID-19 (principal); R11.2 Nausea with vomiting, unspecified
CPT/HCPCS: 99283

== ENCOUNTER → 2023-03-09 18:08 | Outpatient (CLI) | payer OTHER, MEDICAID, SELFPAY ==
[2023-03-09 20:04] LABS: Urine N gonorrhoeae NOT DETECTED
[2023-03-09 20:09] LABS: Urine Chlamydia NOT DETECTED
== END ==
PROVIDERS: PCP Nurse Practitioner Family; Visit Provider Physician Assistant
DX: N89.8 Other specified noninflammatory disorders of vagina (principal); N39.0 Urinary tract infection, site not specified
CPT/HCPCS: 87086; 87210; 87491; 87591

== ENCOUNTER → 2023-08-01 14:30 | Outpatient (CLI) | payer OTHER, MEDICAID, SELFPAY ==
[2023-08-01 16:46] LABS: Urine N gonorrhoeae NOT DETECTED
[2023-08-01 16:47] LABS: Urine Chlamydia NOT DETECTED
== END ==
PROVIDERS: Visit Provider Nurse Practitioner Family
DX: R35.0 Frequency of micturition (principal); N39.9 Disorder of urinary system, unspecified
CPT/HCPCS: 87077; 87086; 87186; 87491; 87591

== ENCOUNTER → 2023-09-16 09:56 | Outpatient (CLI) | payer OTHER, MEDICAID, SELFPAY ==
[2023-09-18 03:36] LABS: C.trachomatis RNA Negative (Negative); N.gonorrhoeae RNA Negative (Negative)
== END ==
PROVIDERS: Visit Provider Nurse Practitioner Family
DX: J02.9 Acute pharyngitis, unspecified (principal)
CPT/HCPCS: 87070; 87491; 87591

== ENCOUNTER → 2023-10-16 11:14 | Outpatient (CLI) | payer OTHER, MEDICAID, SELFPAY | PROVIDERS: Visit Provider Physician Assistant Medical | DX: J02.9 Acute pharyngitis, unspecified (principal) | CPT/HCPCS: 87880 ==

== ENCOUNTER 2024-04-19 21:27 | Emergency (ER) | payer SELFPAY ==
[2024-04-19 21:31] VITALS: BP 112/79; PULSE 82; RESP 18; TEMP 36.8; O2SAT 100; BMI 19.2
[2024-04-19 23:41] VITALS: BP 108/59; PULSE 63; RESP 18; O2SAT 98
--- NOTE | 2024-04-20 03:05 | ED.EYEPROB ---
HPI - Eye Problem General Chief complaint: Eye Problems Stated complaint: rt eye sweling Time Seen by Provider: 04/20/24 02:08 Source: patient Mode of arrival: Ambulatory History of Present Illness HPI Narrative: 29-year-old female with right eye discomfort and discharge drainage since yesterday, no visual disturbance, no foreign body or injury recalled. No recent cough cold symptoms. Left eye thus far not affected. No close contacts to persons with similar symptoms. No fevers or chills. No double vision. No blunt trauma to face or scalp. Related Data Home Medications Medication Instructions Recorded Confirmed atomoxetine 40 mg capsule 40 mg PO QAM 08/01/23 10/16/23 norethindrone (contraceptive) 0.35 0.35 mg PO DAILY 09/16/23 10/16/23 mg tablet Previous Rx's Medication Instructions Recorded erythromycin 5 mg/gram (0.5 %) eye 1 applic EYE-RIGHT TID eye 04/20/24 ointment infection 7 days #3.5 grams Allergies Allergy/AdvReac Type Severity Reaction Status Date / Time No Known Drug Allergies Allergy Verified 10/16/23 11:03 Review of Systems Review of Systems Narrative: see HPI Patient History Medical History Bipolar 1 disorder (2019) Decreased serum protein level History of chlamydia History of depression History of drug abuse (05/22/15) History of self mutilation Iron deficiency Migraine Spontaneous vaginal delivery Vaginal bleeding in Surgical History History of section, low transverse (02/10/19) History of placement of ear tubes Family History Mother Cancer Bipolar 1 disorder Depression Father No problems noted. Grandmother Heavy smoker Emphysema lung Grandfather Myocardial infarct Family estrangement Grandmother No problems noted. Grandfather Cancer Sister Drug addiction in remission Heroin addiction Social History marital status: number of children: 2 household members: spouse and children lives independently: Yes caregiver/support person: No housing: house pets and animals: No education level: high school occupational status: unemployed (homemaker) current occupational exposures/hazards: No special carlito needs: No Smoking Status: Current every day smoker second hand exposure: No alcohol intake: former (Does not like alcohol. Only drank a little after age 23, none since.) substance use type: marijuana Smoking Status: Current every day smoker tobacco type: vaping alcohol intake frequency: a few times a month Substance Use Type: does not use Exam Narrative Exam Narrative: GENERAL: Well-developed patient, in mild distress. HEAD: Atraumatic. Normocephalic. EYES: Right eye with yellow-green purulent discharge conjunctiva, some matting. Pupils equal round and reactive. Extraocular motions intact. No scleral icterus. ENT: Nose without bleeding, purulent drainage. Throat without erythema, tonsillar hypertrophy or exudate. Airway patent. NECK: Trachea midline. Non tender CARDIOVASCULAR: Regular rate and rhythm without murmurs, gallops, or rubs. RESPIRATORY: Clear to auscultation. Breath sounds equal bilaterally. No wheezes, rales, or rhonchi. GASTROINTESTINAL: Abdomen soft, non-tender, nondistended. EXTREMITIES: No edema or joint tenderness. BACK: Nontender without deformity or crepitance. No flank tenderness. NEURO: AOx3. SKIN: No rash or erythema of visible areas Initial Vital Signs Initial Vital Signs: Vital Signs Temperature 98.2 F 04/19/24 21:31 Pulse Rate 82 04/19/24 21:31 Respiratory Rate 18 04/19/24 21:31 Blood Pressure 112/79 04/19/24 21:31 Pulse Oximetry 100 04/19/24 21:31 Oxygen Delivery Method Room Air 04/19/24 21:31 Course Orders Ordered: Discontinued Medications Erythromycin (Erythromycin Ophth 1 Gm Oint) 1 applic EYE-RIGHT NOW ONE Stop: 04/20/24 03:23 Last Admin: 04/20/24 03:40 Dose: 1 applic Documented By: DENISHA Fluorescein Sodium (Fluorescein 1 Mg Strip) 1 mg EYE-BOTH NOW ONE Stop: 04/20/24 01:54 Last Admin: 04/20/24 03:34 Dose: Not Given Documented By: DENISHA Proparacaine HCl (Proparacaine 0.5% Ophth Sonam) 1 drops EYE-BOTH PRN PRN PRN Reason: Pain, Mild (1-3) Vital Signs Vital signs: Vital Signs - 8 hr 04/19/24 21:31 04/19/24 23:41 Temperature 98.2 F Pulse Rate 82 63 Respiratory Rate 18 18 Blood Pressure 112/79 108/59 L Pulse Oximetry 100 98 Oxygen Delivery Method Room Air Room Air MDM - Eye Problem Lab Data Labs: Lab Results 04/20/24 Range/Units 03:18 C.trachomatis Ampl DNA Cancelled M. genitalium (PCR) Cancelled N.gonorrhoeae Ampl DNA Cancelled MDM Narrative Medical decision making narrative: Right eye discharge. No pain with movement of the eye, doubt orbital cellulitis, most consistent with conjunctivitis. Swab sent for right eye discharge culture. 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 Topical erythromycin applied to right eye, dispensed. Further erythromycin antibiotic ointment sent to her pharmacy. Advised to follow up with eye clinic for urine culture results and to reassess symptoms, for other diagnoses of concerns. Discharge Plan Departure Patient Disposition: Home Clinical Impression: Conjunctivitis Activity Restrictions/Additional Instructions: Discharge from right eye, no injury recalled, no discharge from the left eye so far. Suspicious for bacterial conjunctivitis. Wound culture was sent. Also swab for screening for gonococcus and chlamydia infection was sent. Topical erythromycin antibiotic started, prescription also sent for further course of topical antibiotic for your pharmacy. Recheck in the next couple of days in eye clinic. Return to this/nearest emergency department for any change worsening symptoms or any concerns prior Prescriptions: New erythromycin 5 mg/gram (0.5 %) ointment 1 applic EYE-RIGHT TID 7 Days Qty: 3.5 0RF No Action atomoxetine 40 mg capsule 40 mg PO QAM norethindrone (contraceptive) 0.35 mg tablet 0.35 mg PO DAILY Referrals: Miscellaneous,Doctor, MD [Primary Care Provider] - Stand Alone Forms: Patient Portal/API
[2024-04-20] MEDS: ERYTHROMYCIN OPHTH 1 GM OINT 1 APPLIC EYE-RIGHT (03:40)
[2024-04-20 03:50] VITALS: BP 106/60; PULSE 70; RESP 16; O2SAT 100
== END 2024-04-20 03:50 | disposition home or self-care (01) ==
PROVIDERS: Emergency Provider Emergency Medicine
DX: H10.9 Unspecified conjunctivitis (principal)
CPT/HCPCS: 87070; 87077; 87205; 99282

== ENCOUNTER 2024-12-05 14:55 | Emergency (ER) | payer OTHER, SELFPAY ==
[2024-12-05 15:03] VITALS: BP 129/59; PULSE 77; RESP 18; TEMP 36.4; O2SAT 97; BMI 19.2
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
--- NOTE | 2024-12-05 18:00 | PC.NURSE ---
Yunier Temple states pt does not require ccollar prior to CT.
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
[2024-12-05] MEDS: ACETAMINOPHEN 325 MG TABLET 975 MG PO (18:23)
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
[2024-12-05 19:05] VITALS: BP 105/74; PULSE 61
[2024-12-05 19:12] VITALS: BP 105/74; PULSE 61; RESP 16; O2SAT 100
[2024-12-05 19:13] VITALS: BP 124/77; PULSE 55; O2SAT 98
[2024-12-05 19:30] VITALS: BP 105/71; PULSE 58; O2SAT 100
[2024-12-05] MEDS: TET,DIPH,PERTUSS(ACELL),VAC/PF 0.5 ML SYRINGE IM (19:53)
== END 2024-12-05 19:59 | disposition home or self-care (01) ==
PROVIDERS: Emergency Provider Emergency Medicine
DX: S09.90XA Unspecified injury of head, initial encounter (principal); S10.91XA Abrasion of unspecified part of neck, initial encounter; S10.93XA Contusion of unspecified part of neck, initial encounter; Y04.2XXA Assault by strike against or bumped into by another person, initial encounter; Y93.F9 Activity, other caregiving; Z23 Encounter for immunization
CPT/HCPCS: 70450; 72125; 72128; 81003; 81025; 90471; 99284; 90715

== ENCOUNTER → 2025-07-26 10:24 | Outpatient (CLI) | payer OTHER, SELFPAY ==
--- NOTE | 2025-07-26 10:26 | DI.RAD.S_ITS ---
PROCEDURE: XR CHEST 2V INDICATIONS: sob, weight loss, night sweats, chronic swollen lymph nodes TECHNIQUE: 2 views of the chest were acquired. COMPARISON: [facility], , CHEST 1 VIEW, 07/08/2015, 2:15. FINDINGS: Surgical changes and devices: None. Lungs and pleura: Lungs are clear. No pleural effusions or pneumothorax. Mediastinum: Mediastinal contours are normal. Heart size is normal. Bones and chest wall: No suspicious bony abnormalities. Soft tissues appear unremarkable. IMPRESSION: No acute cardiopulmonary abnormality is seen. Dictated by: Brian Barclay M.D. on 07/26/2025 at 11:25 Approved by: Brian Barclay M.D. on 07/26/2025 at 11:26
[2025-07-26 11:13] LABS: Appearance Urine UA CLEAR; Bilirubin Urine UA NEGATIVE (NEGATIVE); Color Urine UA YELLOW; Glucose Urine UA NEGATIVE (Negative); Ketones Urine UA NEGATIVE (NEGATIVE); Leukocyte Esterase Urine UA NEGATIVE (NEGATIVE); Nitrite Urine UA NEGATIVE (Negative); Occult Blood Urine UA 2+ (Negative); Protein Urine UA TRACE (Negative); Specific Gravity Urine UA 1.025 (1.000-1.035); Urobilinogen Urine UA 0.2 E.U./dL (0.2)
[2025-07-26 11:15] LABS: pH Urine UA 6.0 (4.5-8.0)
[2025-07-26 11:24] LABS: Culture Indicated Urine Cult Not Indicated
[2025-07-26 11:42] LABS: Ur Creatinine Normal (Normal); Ur Specific Gravity Normal (Normal); Urine pH Normal (Normal)
[2025-07-26 11:44] LABS: Urine MDMA Negative (Negative); Urine Methamphetamines Negative (Negative); Urine THC Positive (Negative); Urine Tricyclic Antidepressant Negative (Negative)
[2025-07-26 12:07] LABS: Add Manual Diff / Slide Review NO; Hematocrit 39.9 % (36-46); Hemoglobin 13.5 g/dL (12.0-16.0); Lymphocytes Absolute Auto 2600 /uL (1100-4500); Mean Corpuscular HGB Conc 33.9 % (30-36); Mean Corpuscular Hemoglobin 29.9 PG (26-34); Mean Corpuscular Volume 88.1 fL (80-100); Platelet Count 233 X10^3/uL (150-400)
[2025-07-26 12:14] LABS: Alanine Aminotransferase 17 IU/L (<35); Albumin 4.6 g/dL (3.5-5.0); Albumin Globulin Ratio 1.6 (1.0-2.8); Alkaline Phosphatase 66 U/L (38-126); Blood Urea Nitrogen 13 mg/dL (7-17); Calcium 9.5 mg/dL (8.4-10.2); Carbon Dioxide 26 mmol/L (22-32); Chloride 106 mmol/L (98-107); Estimated Glomerular Filt Rate > 60 mL/min (>60); Globulin 2.8 g/dL (1.7-4.1); Glucose 98 mg/dL (70-99); HEMOLYSIS < 15 (0-50); Potassium 3.6 mmol/L (3.4-5.1); Sodium 141 mmol/L (137-145); Total Protein 7.4 g/dL (6.3-8.2)
[2025-07-26 12:30] LABS: Vitamin D 25 Hydroxy (D3) 22.7 ng/mL (30.0-100.0)
[2025-07-26 12:48] LABS: TSH w/ Reflex to FT4 0.52 uIU/mL (0.47-4.68)
[2025-07-26 12:53] LABS: HIV 1 & 2 Ab/Ag 4th Gen Combo NEGATIVE (NEGATIVE)
[2025-07-26 13:05] LABS: Vitamin B12 806 pg/mL (239-931)
== END ==
PROVIDERS: Referring Provider Physician Assistant; Visit Provider Physician Assistant
DX: R59.9 Enlarged lymph nodes, unspecified (principal)
CPT/HCPCS: 71046; 80053; 80305; 81001; 82306; 82607; 84443; 85025; 86318; 87389